=== PATIENT | female | born 1965 | race Caucasian/White ===

== ENCOUNTER 2016-08-11 13:23 | Emergency (ER) | payer MEDICARE ==
[2016-08-11] MEDS ORDERED: ASPIRIN CHEW 81 MG TABLET PO STA (13:51)
[2016-08-11] MEDS ORDERED: ASPIRIN CHEW 81 MG TABLET ONE (13:56)
[2016-08-11] MEDS ORDERED: NITROGLYCERIN SL 0.4 MG TABLET SL ONE (13:56)
[2016-08-11] MEDS ORDERED: MAG HYDROX/AL HYDROX/SIMETH 30 ML UDC PO STA ×3 (14:10→15:14)
[2016-08-11] MEDS ORDERED: LIDOCAINE VISCOUS 2% 15 ML UDC MM STA (14:10)
[2016-08-11] MEDS ORDERED: PHENobarb/HYOSCY/ATROPINE/SCOP 5 ML SYRINGE PO STA (14:10)
[2016-08-11] MEDS ORDERED: LIDOCAINE VISCOUS 2% 15 ML UDC MM ONE (14:22)
[2016-08-11] MEDS ORDERED: PHENobarb/HYOSCY/ATROPINE/SCOP 5 ML SYRINGE PO ONE (14:22)
[2016-08-11] MEDS ORDERED: MAG HYDROX/AL HYDROX/SIMETH 30 ML UDC ONE ×2 (14:22→15:27)
[2016-08-11] MEDS ORDERED: methylPREDNISolone SUCCINATE 125 MG/2 ML VIAL IVP STA ×2 (15:20→16:07)
[2016-08-11] MEDS ORDERED: methylPREDNISolone SUCCINATE 125 MG/2 ML VIAL IVP ONE (15:27)
[2016-08-11] MEDS ORDERED: METHYLPREDNISOLONE SUCCINATE IV STA ×2 (16:12→16:16)
[2016-08-11] MEDS ORDERED: SODIUM CHLORIDE 0.9% IV STA ×2 (16:12→16:16)
== END 2016-08-11 17:45 | disposition home or self-care (01) ==
DX: G35 Multiple sclerosis (principal); K21.9 Gastro-esophageal reflux disease without esophagitis; I10 Essential (primary) hypertension; I48.91 Unspecified atrial fibrillation; F17.200 Nicotine dependence, unspecified, uncomplicated
CPT/HCPCS: 36415; 71010; 80053; 81003; 83690; 84484; 85025; 85610; 93005; 93010; 96365; 96375; 99284; A9270

== ENCOUNTER 2016-09-21 09:16 | Outpatient (CLI) | payer MEDICARE ==
--- NOTE | 2016-09-21 14:51 | Ultrasound Report ---
THYROID ULTRASOUND: 09/21/2016 CLINICAL HISTORY: Bilateral neck swelling. TECHNIQUE: Real-time scanning was performed with food service sales representatives static images obtained. FINDINGS: Thyroid dimensions: Right lobe of the thyroid 4.5 cm by 1.2 cm by 1.4 cm for a volume of 3.9 cubic centimeters. Left lobe of the thyroid: 4.7 cm by 1.5 cm by 1.3 cm for a volume of 9.1 cubic centimeters. Thyroid isthmus has an AP diameter of 0.33 cm. The thyroid shows small oval-shaped mass in the inferior aspect of the left lobe of the thyroid that is slightly complex. It measures 0.54 cm by 0.35 cm by 0.45 cm. Findings at present are not suspicious enough to warrant biopsy. They should be followed with a repeat thyroid ultrasound in one to two years for further evaluation. A small oval-shaped benign solid mass is noted in the left posterior auricular region measuring 0.6 cm by 0.4 cm by 0.5 cm. This small mass is hyperechoic and well circumscribed. It has a benign appearance. It may represent a small lymph node. Suggest this finding undergo a repeat ultrasound in twelve months. The patient reported a lump in the area of the right jaw. This measured 1 cm by 0.4 cm. It had a configuration consistent with a benign lymph node. The lateral aspects of each neck in the supraclavicular regions were also scanned since patient reported a palpable prominence in this region. These areas had a benign configuration representing normal tissue. IMPRESSION: 1. A 0.54 CM BY 0.35 CM BY 0.45 CM NODULE IS NOTED IN THE INFERIOR ASPECT OF THE LEFT LOBE IN THE THYROID. THIS FINDING PRESENTLY HAS BENIGN CONFIGURATION. RECOMMEND A REPEAT THYROID ULTRASOUND IN TWELVE MONTHS FOR FURTHER EVALUATION. 2. A 0.6 CM BY 0.4 CM BY 0.5 CM WELL CIRCUMSCRIBED MILDLY HYPERECHOIC MASS IS SEEN IN THE LEFT POSTERIOR AURICULAR REGION. THIS FINDING MAY REPRESENT A SMALL BENIGN LYMPH NODE. RECOMMEND A REPEAT ULTRASOUND IN ONE YEAR FOR FURTHER EVALUATION. 3. OTHER AREAS OF CONCERN IN THE NECK WERE SCANNED AND SHOWED NO SIGNIFICANT ABNORMALITY. [facility]
== END 2016-09-21 09:17 | disposition home or self-care (01) ==
LOC: DI 09:16
PROVIDERS: ATTEND Family Medicine
DX: E04.1 Nontoxic single thyroid nodule (principal)
CPT/HCPCS: 76536

== ENCOUNTER 2016-12-07 13:56 | Outpatient (CLI) | payer MEDICARE ==
[2016-12-07 19:11] LABS: ALBUMIN/GLOBULIN RATIO 1.5 (1.0-2.2); BILIRUBIN,TOTAL 0.7 mg/dL (0.2-1.0); CALCIUM 9.3 mg/dL (8.5-10.3); CREATININE 0.6 mg/dL (0.4-1.0); POTASSIUM 4.3 mmol/L (3.5-5.0); TOTAL PROTEIN 6.9 g/dL (6.7-8.2)
== END 2016-12-07 13:57 | disposition home or self-care (01) ==
LOC: LAB.F 13:56
PROVIDERS: ATTEND Physician Assistant Medical
DX: Z51.81 Encounter for therapeutic drug level monitoring (principal); Z79.899 Other long term (current) drug therapy
CPT/HCPCS: 36415; 80053

== ENCOUNTER 2017-11-06 11:45 | Emergency (ER) | payer MEDICARE ==
[2017-11-06 11:55] VITALS: BP 136/98
[2017-11-06 12:31] LABS: ALBUMIN 4.6 g/dL (3.2-5.5); ALBUMIN/GLOBULIN RATIO 1.6 (1.0-2.2); BILIRUBIN,TOTAL 0.5 mg/dL (0.2-1.0); CALCIUM 9.3 mg/dL (8.5-10.3); CREATININE 0.8 mg/dL (0.4-1.0); TOTAL PROTEIN 7.5 g/dL (6.7-8.2)
[2017-11-06 12:38] LABS: INR 0.9 (0.8-1.2); PT - PROTHROMBIN TIME 9.8 secs (9.9-12.6)
[2017-11-06 12:51] LABS: BASOPHILS # (AUTO) 0.1 10^3/uL (0.0-0.1); BASOPHILS % (AUTO) 0.7 %; EOSINOPHILS % (AUTO) 0.3 %; HGB - HEMOGLOBIN 13.6 g/dL (12.0-16.0); LYMPHOCYTES % (AUTO) 12.4 %; MEAN CORPUSCULAR HEMOGLOBIN 34.3 pg (27.0-31.0); MEAN CORPUSCULAR HGB CONC 34.3 g/dL (32.0-36.0); MONOCYTES # (AUTO) 0.6 10^3/uL (0.0-1.0); MONOCYTES % (AUTO) 7.3 %; NEUTROPHILS # (AUTO) 6.5 10^3/uL (1.5-6.6); NEUTROPHILS % (AUTO) 79.3 %; PLT - PLATELET COUNT 302 10^3/uL (130-450); RED BLOOD COUNT 3.97 10^6/uL (4.20-5.40); RED CELL DISTRIBUTION WIDTH 13.6 % (12.0-15.0); WHITE BLOOD COUNT 8.2 x10^3/uL (4.8-10.8)
--- NOTE | 2017-11-06 13:20 | ED Physician Documentation ---
PD HPI NVD - Stated complaint Stated Complaint: N/V/D - Chief complaint Chief Complaint: Abd Pain - History obtained from History obtained from: Patient - History of Present Illness Timing - onset: How many days ago (4) Timing - duration: Days (4) Timing - details: Gradual onset, Still present (having increased pain upper abd with subjective cark stools. Having vomiting. Pain worse with eating. Bilious vomiting for the past 2 days. history of gastritis in the past. Sees Dr. 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: Endometrial ablation, Tubal ligation Cardiovascular: Other HEENT: Rhinoplasty, Tonsil/Adenoidectomy - Present Medications Home Medications: Ambulatory Orders Medication Instructions Recorded Confirmed Acyclovir 400 mg PO DAILY 04/15/13 04/16/17 Metoprolol Succinate [Toprol Xl] 25 mg PO TID 04/15/13 04/16/17 Tecfidera 240 mg ORAL BID 04/15/13 04/16/17 diazePAM [Valium] 5 mg PO BID 04/15/13 04/16/17 oxyCODONE ER [OxyCONTIN] 10 mg PO Q8HR PRN 04/15/13 04/16/17 Omeprazole 40 mg PO DAILY 12/24/14 04/16/17 Tizanidine HCl [Zanaflex] 2 mg PO TID 12/24/14 04/16/17 Venlafaxine [Effexor] 2 tab ORAL DAILY 12/24/14 04/16/17 Oxybutynin [Ditropan] 1 - 4 tab PO .FREQ 08/11/16 04/16/17 Sucralfate Malate, Polymerized 1 gm MM QID PRN #30 paste..ml. 08/11/16 04/16/17 [Orafate] HYDROcod/ACETAM 5/325 [[place] 5/325] 1 tab PO Q6H PRN #15 tablet 11/06/17 Lidocaine Viscous 2% [Xylocaine 5 ml PO Q4H PRN #1 bottle 11/06/17 Viscous 2%] Nystatin 500,000 unit PO QID #200 ml 11/06/17 Ondansetron HCl [Zofran] 4 mg PO Q6H PRN #20 tablet 11/06/17 Pantoprazole [Protonix] 40 mg PO DAILY #30 tablet 11/06/17 - Allergies Allergies/Adverse Reactions: Allergies Allergy/AdvReac Type Severity Reaction Status Date / Time amoxicillin [Amoxicillin] Allergy Rash Verified 11/06/17 11:55 ciprofloxacin [From Cipro] Allergy unknown Verified 11/06/17 11:55 ciprofloxacin HCl * Allergy unknown Verified 11/06/17 11:55 [From Cipro] meperidine HCl * AdvReac Severe Rash Verified 11/06/17 11:55 [From Demerol] - Social History Does the pt smoke?: Yes Smoking Status: Current every day smoker Does the pt drink ETOH?: No Does the pt have substance abuse?: No - Immunizations Immunizations are current?: No Immunizations: TDAP >10years/unknown PD ED PE NORMAL - Vitals Vital signs reviewed: Yes - General General: Alert and oriented X 3, Well developed/nourished, Other (appears uncomfortable due to upper abd pain) - HEENT HEENT: No: Pharynx benign (white plaque roof of mouth c/w thrush. Posterior pharynx appears okay. ) - Neck Neck: Supple, no meningeal sign, No adenopathy - Cardiac Cardiac: RRR, No murmur - Respiratory Respiratory: Clear bilaterally - Abdomen Abdomen: Normal bowel sounds, Soft, Non distended, No organomegaly, Other ( tender epigastric area without percussion nor rebound tenderness. ) - Female Female : Deferred - Rectal Rectal: Deferred - Back Back: No CVA TTP - Derm Derm: Normal color, Warm and dry - Extremities Extremities: No tenderness to palpate, Normal ROM s pain - Neuro Neuro: Alert and oriented X 3, No motor deficit, Normal speech Results - Vitals Vitals: Oxygen O2 Source Room air - Labs Labs: Laboratory Tests 11/06/17 11/06/17 11/06/17 12:00 12:11 12:11 WBC Cancelled RBC Cancelled Hgb Cancelled Hct Cancelled MCV Cancelled MCH Cancelled MCHC Cancelled RDW Cancelled Plt Count Cancelled MPV Cancelled Neut # (Auto) Lymph # (Auto) [place] # (Auto) Eos # (Auto) Baso # (Auto) Absolute Nucleated RBC Nucleated RBC % PT INR APTT Sodium Potassium Chloride Carbon Dioxide Anion Gap BUN Creatinine Estimated GFR (MDRD) Glucose Calcium Total Bilirubin AST ALT Alkaline Phosphatase Total Protein Albumin Globulin Albumin/Globulin Ratio Lipase Urine Color YELLOW Urine Clarity CLEAR Urine pH 6.5 Ur Specific [place] <=1.005 Urine Protein NEGATIVE Urine Glucose (UA) NEGATIVE Urine Ketones NEGATIVE Urine Occult Blood NEGATIVE Urine Nitrite NEGATIVE Urine Bilirubin NEGATIVE Urine Urobilinogen 0.2 (NORMAL) Ur Leukocyte Esterase NEGATIVE Ur Microscopic Review NOT INDICATED Urine Culture Comments NOT INDICATED Blood Type O POSITIVE Antibody Screen NEGATIVE 11/06/17 11/06/17 11/06/17 12:11 12:11 12:11 WBC 8.2 RBC 3.97 L Hgb 13.6 Hct 39.7 MCV 100.0 H MCH 34.3 H MCHC 34.3 RDW 13.6 Plt Count 302 MPV 8.0 Neut # (Auto) 6.5 Lymph # (Auto) 1.0 L [place] # (Auto) 0.6 Eos # (Auto) 0.0 Baso # (Auto) 0.1 Absolute Nucleated RBC 0.00 Nucleated RBC % 0.1 PT 9.8 L INR 0.9 APTT 25.8 Sodium 133 L Potassium 3.8 Chloride 96 L Carbon Dioxide 29 Anion Gap 8.0 BUN 10 Creatinine 0.8 Estimated GFR (MDRD) 75 L Glucose 113 H Calcium 9.3 Total Bilirubin 0.5 AST 21 ALT 18 Alkaline Phosphatase 93 Total Protein 7.5 Albumin 4.6 Globulin 2.9 Albumin/Globulin Ratio 1.6 Lipase 34 Urine Color Urine Clarity Urine pH Ur Specific [place] Urine Protein Urine Glucose (UA) Urine Ketones Urine Occult Blood Urine Nitrite Urine Bilirubin Urine Urobilinogen Ur Leukocyte Esterase Ur Microscopic Review Urine Culture Comments Blood Type Antibody Screen PD MEDICAL DECISION MAKING - ED course Complexity details: re-evaluated patient, considered differential (some oral thrush. COuld be esophageal thrush causing some pain. Does have prior esophageal problems though. I talked with GI fire prevention chief, and they will see her in next 1-2 days. ), d/w patient - Sepsis Event Vital Signs: Oxygen O2 Source Room air Departure - Departure Disposition: 01 Home, Self Care Clinical Impression: Upper abdominal pain, Oral thrush Gastritis Qualifiers: Gastritis type: unspecified gastritis Chronicity: acute Gastritis bleeding: with bleeding Qualified Code(s): K29.01 - Acute gastritis with bleeding Condition: Stable Record reviewed to determine appropriate education?: Yes Instructions: ED PUD Vs Gastritis Follow-Up: Jaclyn Moore PA-C [Primary Care Provider] - Rashad Segundo MD [Provider Admit Priv/Credential] - Prescriptions: HYDROcod/ACETAM 5/325 [[place] 5/325] 1 tab PO Q6H PRN #15 tablet PRN Reason: Pain Lidocaine Viscous 2% [Xylocaine Viscous 2%] 5 ml PO Q4H PRN #1 bottle PRN Reason: Pain Nystatin 500,000 unit PO QID #200 ml Ondansetron HCl [Zofran] 4 mg PO Q6H PRN #20 tablet PRN Reason: Nausea / Vomiting Pantoprazole [Protonix] 40 mg PO DAILY #30 tablet Comments: Frequent fluids. Soft and bland food for the next few days. Call your automotive service professional Wednesday for follow-up appointment in the next few days. Change from omeprazole to pantoprazole. Continue with the sucralfate 3 or 4 times daily. Add lidocaine if needed with antacid such as Maalox or Mylanta for stomach pains. Ondansetron if needed for nausea. Add hydrocodone if needed for pains. Return if worsening symptoms. Discharge Date/Time: 11/06/17 16:52
[2017-11-06 13:22] LABS: BILIRUBIN,URINE NEGATIVE (NEGATIVE); GLUCOSE, URINE (UA) NEGATIVE (NEGATIVE); KETONES,URINE (UA) NEGATIVE (NEGATIVE); LEUKOCYTE ESTERASE, URINE NEGATIVE (NEGATIVE); NITRITE,URINE NEGATIVE (NEGATIVE); OCCULT BLOOD,URINE NEGATIVE (NEGATIVE); PH,URINE 6.5 PH (5.0-7.5); PROTEIN,URINE NEGATIVE (NEGATIVE); UROBILINOGEN,URINE 0.2 (NORMAL) E.U./dL (NORMAL)
[2017-11-06 13:24] LABS: CLARITY,URINE CLEAR (CLEAR)
[2017-11-06] MEDS ORDERED: SODIUM CHLORIDE 0.9% 1,000 ML IV ONE (13:45)
[2017-11-06] MEDS ORDERED: LIDOCAINE VISCOUS 2% 15 ML UDC MM STA (13:46)
[2017-11-06] MEDS ORDERED: MAG HYDROX/AL HYDROX/SIMETH 30 ML UDC PO STA (13:46)
[2017-11-06] MEDS ORDERED: MORPHINE 10 MG/ML VIAL IVP STA (13:46)
[2017-11-06] MEDS ORDERED: FAMOTIDINE 20 MG/50 ML 50 ML IV ONE (13:46)
[2017-11-06] MEDS ORDERED: ONDANSETRON 4 MG/2 ML VIAL IVP STA (13:46)
[2017-11-06] MEDS ORDERED: NYSTATIN 500000 UNITS/5 ML UDC PO STA (14:46)
[2017-11-06] MEDS ORDERED: diphenhydrAMINE ELIXIR 25 MG/10 ML UDC PO STA (14:46)
== END 2017-11-06 16:52 | disposition home or self-care (01) ==
LOC: ED 11:45
DX: R10.10 Upper abdominal pain, unspecified (principal); B37.0 Candidal stomatitis; K29.01 Acute gastritis with bleeding; I10 Essential (primary) hypertension; F17.200 Nicotine dependence, unspecified, uncomplicated
CPT/HCPCS: 36415; 80053; 81003; 83690; 85025; 85610; 85730; 86850; 86900; 86901; 96365; 96375; 99283; A9270; 81001; 85027; 87086

== ENCOUNTER 2018-12-19 12:37 | Emergency (ER) | payer MEDICARE ==
--- NOTE | 2018-12-19 13:09 | ED Physician Documentation ---
History of Present Illness - Stated complaint Stated Complaint: HIGH BP, DIZZY, - Chief complaint Chief Complaint: Cardiac - Additonal information Additional information: This is a 53-year-old female with a history of multiple sclerosis, repaired ASD, atrial fibrillation not on anticoagulation, who presents with multiple complaints. She states that she has had a severe headache for 2 weeks, and she will intermittently have some slightly blurred vision as well. She has achiness in her muscles, she will intimately get some palpitations. She has noted her blood pressure to be high at home. She also for the last month has been getting some intermittent bruising which are some deep purple sheikh that are the size of pencil eraser's nail shop on her arms and legs, without clear trauma. She denies any easy bleeding, or known coagulopathy. She is not on blood thinners. Review of Systems Constitutional: denies: Fever Eyes: reports: Other (intermittent vision change) Throat: denies: Sore throat Cardiac: reports: Other (Hx a-fib) Respiratory: denies: Hemoptysis GI: reports: Nausea Skin: reports: Other (bruising) Neurologic: reports: Generalized weakness Psychiatric: reports: Anxiety Endocrine: reports: Easy bruising / bleeding Immunocompromised: denies: Immunocompromised PD PAST MEDICAL HISTORY - Past Medical History Past Medical History: No Cardiovascular: Hypertension, Atrial fibrillation, Arrhythmia, Other Respiratory: None Neuro: None Endocrine/Autoimmune: None GI: GERD 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 : Incontinence HEENT: Chronic hearing loss, Other Psych: Depression, Anxiety Musculoskeletal: Fatigue, Chronic back pain Derm: Other - Past Surgical History Past Surgical History: Yes General: Colonoscopy, 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: Endometrial ablation, Tubal ligation Cardiovascular: Other HEENT: Rhinoplasty, Tonsil/Adenoidectomy - Present Medications Home Medications: Ambulatory Orders Medication Instructions Recorded Confirmed Acyclovir 400 mg PO DAILY 04/15/13 04/16/17 Metoprolol Succinate [Toprol Xl] 25 mg PO TID 04/15/13 04/16/17 Tecfidera 240 mg ORAL BID 04/15/13 04/16/17 diazePAM [Valium] 5 mg PO BID 04/15/13 04/16/17 oxyCODONE ER [OxyCONTIN] 10 mg PO Q8HR PRN 04/15/13 04/16/17 Omeprazole 40 mg PO DAILY 12/24/14 04/16/17 Tizanidine HCl [Zanaflex] 2 mg PO TID 12/24/14 04/16/17 Venlafaxine [Effexor] 2 tab ORAL DAILY 12/24/14 04/16/17 Oxybutynin [Ditropan] 1 - 4 tab PO .FREQ 08/11/16 04/16/17 Sucralfate Malate, Polymerized 1 gm MM QID PRN #30 paste..ml. 08/11/16 04/16/17 [Orafate] HYDROcod/ACETAM 5/325 [[place] 5/325] 1 tab PO Q6H PRN #15 tablet 11/06/17 Lidocaine Viscous 2% [Xylocaine 5 ml PO Q4H PRN #1 bottle 11/06/17 Viscous 2%] Nystatin 500,000 unit PO QID #200 ml 11/06/17 Ondansetron HCl [Zofran] 4 mg PO Q6H PRN #20 tablet 11/06/17 Pantoprazole [Protonix] 40 mg PO DAILY #30 tablet 11/06/17 - Allergies Allergies/Adverse Reactions: Allergies Allergy/AdvReac Type Severity Reaction Status Date / Time amoxicillin [Amoxicillin] Allergy Rash Verified 12/19/18 12:50 ciprofloxacin [From Cipro] Allergy unknown Verified 12/19/18 12:50 ciprofloxacin HCl * Allergy unknown Verified 12/19/18 12:50 [From Cipro] meperidine HCl * AdvReac Severe Rash Verified 12/19/18 12:50 [From Demerol] - Social History Does the pt smoke?: Yes Smoking Status: Current every day smoker Does the pt drink ETOH?: Yes Does the pt have substance abuse?: Yes Substance Use and Type: Marijuana - Immunizations Immunizations are current?: No Immunizations: TDAP >10years/unknown - POLST Patient has POLST: No PD ED PE NORMAL - Vitals Vital signs reviewed: Yes - General General: Alert and oriented X 3, No acute distress - HEENT HEENT: PERRL - Neck Neck: Supple, no meningeal sign - Cardiac Cardiac: RRR, No murmur - Respiratory Respiratory: Clear bilaterally - Abdomen Abdomen: Soft, Non tender, Non distended - Derm Derm: Warm and dry, Other (Several scattered, normal appearing small bruises in different stages of resoltuion on the lower and upper extremities.) - Extremities Extremities: No deformity - Neuro Neuro: Alert and oriented X 3, senior backup administrator 2-12 intact, No motor deficit, No sensory deficit, Normal speech - Psych Psych: Normal mood, Other (Anxious affect) Results - Vitals Vitals: Oxygen O2 Source Room air - EKG (time done) 12:58 Other comments: Other comments (Rate 73, rhythm sinus, there is slight less than [address] depression in V4 and V5. There are T wave inversions in V1 V2 and V3. QTC is 422) - Labs Labs: Laboratory Tests 12/19/18 12/19/18 12/19/18 13:25 13:25 13:25 WBC 6.2 RBC 4.65 Hgb 15.0 Hct 43.8 MCV 94.2 MCH 32.3 H MCHC 34.2 RDW 12.9 Plt Count 342 MPV 9.6 Neut # (Auto) 3.7 Lymph # (Auto) 1.5 [place] # (Auto) 0.8 Eos # (Auto) 0.1 Baso # (Auto) 0.1 Absolute Nucleated RBC 0.00 Nucleated RBC % 0.0 PT INR Sodium 141 Potassium 4.1 Chloride 104 Carbon Dioxide 24 Anion Gap 13.0 BUN 21 H Creatinine 0.6 Estimated GFR (MDRD) 104 Glucose 110 H Calcium 9.9 Total Bilirubin 0.5 AST 23 ALT 23 Alkaline Phosphatase 87 Troponin I High Sens 3.5 Total Protein 8.0 Albumin 4.6 Globulin 3.4 Albumin/Globulin Ratio 1.4 Lipase 31 Serum HCG, Qual 12/19/18 12/19/18 13:25 13:25 WBC RBC Hgb Hct MCV MCH MCHC RDW Plt Count MPV Neut # (Auto) Lymph # (Auto) [place] # (Auto) Eos # (Auto) Baso # (Auto) Absolute Nucleated RBC Nucleated RBC % PT 10.9 INR 1.0 Sodium Potassium Chloride Carbon Dioxide Anion Gap BUN Creatinine Estimated GFR (MDRD) Glucose Calcium Total Bilirubin AST ALT Alkaline Phosphatase Troponin I High Sens Total Protein Albumin Globulin Albumin/Globulin Ratio Lipase Serum HCG, Qual NEGATIVE - Rads (name of study) CT head Radiology: Final report received (No acute intracranial abnormality) Chest XR Radiology: Final report received (Negative for acute abnormality) PD MEDICAL DECISION MAKING - ED course Complexity details: considered differential (HTN, electrolyte abnormality, migraine, tension headache, ACS, coagulaopathy, thrombocytopenia, anemia, pnuemonia ) ED course: On exam patient is hypertensive. EKG shows slight lateral ST depression of uncertain chronicity. She has no chest pain or shortness of breath. Her symptoms have been ongoing for > 6 hours and her high-sensitivity troponin is negative, I highly doubt acute ischemia. She should follow with her PCP or a resident advisor on her EKG changes. CXR unremarkable. Labs unrevealing. Regarding her bruising, she has several small areas of ecchymosis on her extremities that do not appear abnormal to me. INR and platelets are normal. CT head negative and her neurologic exam is unremarkable. Her BP removed spontaneously, as did patients headache and symptoms. I discussed that I do not see an emergent cause of her symptoms, and given that she is now feeling improved she appears safe for discharge. She needs to follow very closely with her PCP, and return with any new or worsening symptoms. Patient agreed and was discharged in the care of her . Departure - Departure Disposition: 01 Home, Self Care Clinical Impression: Headache Qualifiers: Headache type: unspecified Headache chronicity pattern: acute headache Intractability: not intractable Qualified Code(s): R51 - Headache Condition: Good Instructions: ED Cephalgia Unspecified Follow-Up: Your,PCP [Other] (As soon as possible for follow up on symptoms) Comments: You were seen today for a variety of symptoms, including headache and bruising. I do not see signs of abnormal clotting with your blood, and the CT scan of your head does not show any obvious abnormalities. Your chest x-ray also looked good, and your labs are reassuring. Please follow-up closely with your primary care provider return to the emergency department if you develop new or worsening symptoms Discharge Date/Time: 12/19/18 15:32
[2018-12-19 13:36] LABS: BASOPHILS # (AUTO) 0.1 10^3/uL (0.0-0.1); BASOPHILS % (AUTO) 1.4 %; EOSINOPHILS # (AUTO) 0.1 10^3/uL (0.0-0.7); EOSINOPHILS % (AUTO) 2.1 %; LYMPHOCYTES # (AUTO) 1.5 10^3/uL (1.5-3.5); MEAN CORPUSCULAR HEMOGLOBIN 32.3 pg (27.0-31.0); MEAN CORPUSCULAR HGB CONC 34.2 g/dL (32.0-36.0); MEAN CORPUSCULAR VOLUME 94.2 fL (81.0-99.0); MEAN PLATELET VOLUME 9.6 fL (7.9-10.8); MONOCYTES # (AUTO) 0.8 10^3/uL (0.0-1.0); MONOCYTES % (AUTO) 12.1 %; NEUTROPHILS # (AUTO) 3.7 10^3/uL (1.5-6.6); NEUTROPHILS % (AUTO) 59.9 %; PLT - PLATELET COUNT 342 10^3/uL (130-450); RED BLOOD COUNT 4.65 10^6/uL (4.20-5.40); RED CELL DISTRIBUTION WIDTH 12.9 % (12.0-15.0); WHITE BLOOD COUNT 6.2 x10^3/uL (4.8-10.8)
[2018-12-19 13:56] LABS: HCG,QUALITATIVE BLOOD NEGATIVE; PT - PROTHROMBIN TIME 10.9 secs (9.9-12.6)
[2018-12-19 14:06] LABS: ALBUMIN 4.6 g/dL (3.2-5.5); ALBUMIN/GLOBULIN RATIO 1.4 (1.0-2.2); BILIRUBIN,TOTAL 0.5 mg/dL (0.2-1.0); CREATININE 0.6 mg/dL (0.4-1.0)
--- NOTE | 2018-12-19 14:17 | CT Report ---
Reason: severe headache Procedure Date: 12/19/2018 Accession Number: [id number] / [id number] Procedure: CT - HEAD WO CPT Code: FULL RESULT: EXAM: CT HEAD EXAM DATE: 12/19/2018 02:02 PM. CLINICAL HISTORY: Severe headache. COMPARISON: None. TECHNIQUE: Multiaxial CT images were obtained from the foramen magnum to the vertex. Reformats: Sagittal and coronal. IV contrast: None. In accordance with CT protocol optimization, one or more of the following dose reduction techniques were utilized for this exam: automated exposure control, adjustment of mA and/or KV based on patient size, or use of iterative reconstructive technique. FINDINGS: Parenchyma: No intraparenchymal hemorrhage. No evidence of mass, midline shift, or CT findings of infarction. Chavez-white differentiation is distinct. Extraaxial Spaces: Normal for age. No subdural or epidural collections identified. Ventricles: Normal in size and position. Sinuses and Orbits: Imaged paranasal sinuses, orbits, and mastoids show no significant abnormality. Bones: No evidence of fracture or calvarial defect. Other: None. IMPRESSION: No CT evidence of acute intracranial abnormality. [facility]
--- NOTE | 2018-12-19 14:20 | XRAY Report ---
Reason: Chest discomfort Procedure Date: 12/19/2018 Accession Number: [id number] / [id number] Procedure: XR - Chest 2 View X-Ray CPT Code: 52920 FULL RESULT: EXAM: CHEST RADIOGRAPHY EXAM DATE: 12/19/2018 01:46 PM. CLINICAL HISTORY: Chest discomfort. COMPARISON: CHEST 1 VIEW 08/11/2016 2:17 PM. TECHNIQUE: 2 views. FINDINGS: Lungs/Pleura: No focal opacities evident. No pleural effusion. No pneumothorax. Normal volumes. Mediastinum: Heart and mediastinal contours are unremarkable. Other: None. IMPRESSION: No acute intrathoracic plain film abnormality. [facility]
[2018-12-19 14:23] LABS: CALCIUM 9.9 mg/dL (8.5-10.3)
[2018-12-19 15:36] VITALS: BP 131/66
== END 2018-12-19 15:32 | disposition home or self-care (01) ==
LOC: ED 12:37
DX: R51 Headache (principal); R23.3 Spontaneous ecchymoses; R94.31 Abnormal electrocardiogram [ECG] [EKG]; I10 Essential (primary) hypertension; G35 Multiple sclerosis; Z86.79 Personal history of other diseases of the circulatory system; F17.200 Nicotine dependence, unspecified, uncomplicated
CPT/HCPCS: 36415; 70450; 71046; 80053; 83690; 84484; 84703; 85025; 85610; 93005; 99284

== ENCOUNTER 2019-12-04 23:36 | Emergency (ER) | payer MEDICARE ==
[2019-12-04 23:43] VITALS: BP 145/91
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
[2019-12-04] MEDS ORDERED: TETANUS/DIPHTHERIA/PERTUSSIS 0.5 ML SYRINGE IM ONE (23:53)
[2019-12-05] MEDS ORDERED: BUFFERED LIDOCAINE 10 ML SYRINGE SUBQ STA (00:06)
[2019-12-05] MEDS ORDERED: BACITRACIN ZINC OINT 1 PACKET TOP STA (01:26)
--- NOTE | 2019-12-05 08:55 | XRAY Report ---
PROCEDURE: Forearm RT INDICATIONS: FA laceration, possible FB TECHNIQUE: 2 views of the forearm were acquired. COMPARISON: None FINDINGS: Bones: No fractures or dislocations. No suspicious bony lesions. Soft tissues: Laceration over left and ulnar aspect of right forearm is seen. No suspicious soft tis noelle calcifications or masses. IMPRESSION: No acute forearm fracture or dislocation. No radiopaque foreign body is seen. Reviewed by: Lalo Warner MD on 12/05/2019 8:53 AM PDT Approved by: Lalo Warner MD on 12/05/2019 8:53 AM PDT Station ID: [id number]
== END 2019-12-05 01:45 | disposition home or self-care (01) ==
LOC: EDUNIT# → ED 23:36
DX: S51.811A Laceration without foreign body of right forearm, initial encounter (principal); S60.511A Abrasion of right hand, initial encounter; X99.9XXA Assault by unspecified sharp object, initial encounter; Y92.009 Unspecified place in unspecified non-institutional (private) residence as the place of occurrence of the external cause; Z23 Encounter for immunization; R45.1 Restlessness and agitation; I10 Essential (primary) hypertension; F17.200 Nicotine dependence, unspecified, uncomplicated
CPT/HCPCS: 12001; 73090; 90471; 90715; 99283; 99284; A9270

== ENCOUNTER 2019-12-20 13:51 | Outpatient (CLI) | payer MEDICARE | END 2019-12-20 13:52 | disposition home or self-care (01) | LOC: LAB 13:51 | PROVIDERS: ATTEND Orthopaedic Surgery | DX: I48.0 Paroxysmal atrial fibrillation (principal); R00.2 Palpitations; Z20.828 Contact with and (suspected) exposure to other viral communicable diseases | CPT/HCPCS: 93005; U0004 ==

== ENCOUNTER 2019-12-26 13:36 | Inpatient (IN) | payer MEDICARE ==
--- NOTE | 2019-12-26 14:34 | ED Physician Documentation ---
History of Present Illness - Stated complaint Stated Complaint: NUMBNESS RT SIDE - Chief complaint Chief Complaint: Neuro - History obtained from History obtained from: Patient - History of Present Illness Timing: Prior to arrival, How many days ago (5) - Additonal information Additional information: 54-year-old female presents to the emergency department for evaluation of numbness predominantly in her right leg right abdomen and perianal area. She reports to me a history of multiple sclerosis. She reports that 5 days ago she began having numbness on the top of her right thigh that then spread to the right side of her abdomen, the saddle area as well as now the entire right leg. She denies that she has had any bowel or urinary incontinence. She denies any fevers urinary symptoms. She states that due to a variety of issues including cost of medication she has not been taking any of her routine MS medications for nearly 18 months or 2 years. She states that about 2 weeks ago she began having vision changes in her right eye and she saw a neurologist. He suspected that she had optic neuritis and placed her on steroid drops. She endorses heart palpitations but no chest pain or dyspnea. She has had no cough no fever no urinary symptoms. No falls, no rashes. No recent travel. 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 : Incontinence HEENT: Chronic hearing loss, Other Psych: Depression, Anxiety Musculoskeletal: Fatigue, Chronic back pain Derm: Other - Past Surgical History Past Surgical History: Yes General: Colonoscopy, EGD /RECREATION SUPERVISOR: Endometrial ablation, Tubal ligation Cardiovascular: Other HEENT: Rhinoplasty, Tonsil/Adenoidectomy - Present Medications Home Medications: Ambulatory Orders Medication Instructions Recorded Confirmed Acyclovir 400 mg PO DAILY 04/15/13 04/16/17 Metoprolol Succinate [Toprol Xl] 25 mg PO TID 04/15/13 04/16/17 Tecfidera 240 mg ORAL BID 04/15/13 04/16/17 diazePAM [Valium] 5 mg PO BID 04/15/13 04/16/17 oxyCODONE ER [OxyCONTIN] 10 mg PO Q8HR PRN 04/15/13 04/16/17 Omeprazole 40 mg PO DAILY 12/24/14 04/16/17 Tizanidine HCl [Zanaflex] 2 mg PO TID 12/24/14 04/16/17 Venlafaxine [Effexor] 2 tab ORAL DAILY 12/24/14 04/16/17 Oxybutynin [Ditropan] 1 - 4 tab PO .FREQ 08/11/16 04/16/17 Sucralfate Malate, Polymerized 1 gm MM QID PRN #30 paste..ml. 08/11/16 04/16/17 [Orafate] HYDROcod/ACETAM 5/325 [[place] 5/325] 1 tab PO Q6H PRN #15 tablet 11/06/17 Lidocaine Viscous 2% [Xylocaine 5 ml PO Q4H PRN #1 bottle 11/06/17 Viscous 2%] Nystatin 500,000 unit PO QID #200 ml 11/06/17 Ondansetron HCl [Zofran] 4 mg PO Q6H PRN #20 tablet 11/06/17 Pantoprazole [Protonix] 40 mg PO DAILY #30 tablet 11/06/17 - Allergies Allergies/Adverse Reactions: Allergies Allergy/AdvReac Type Severity Reaction Status Date / Time amoxicillin [Amoxicillin] Allergy Rash Verified 12/26/19 13:52 ciprofloxacin [From Cipro] Allergy unknown Verified 12/26/19 13:52 ciprofloxacin HCl * Allergy unknown Verified 12/26/19 13:52 [From Cipro] meperidine HCl * AdvReac Severe Rash Verified 12/26/19 13:52 [From Demerol] - Social History Does the pt smoke?: Yes Smoking Status: Current every day smoker Does the pt drink ETOH?: Yes Does the pt have substance abuse?: Yes - Immunizations Immunizations are current?: No Immunizations: TDAP >10years/unknown - POLST Patient has POLST: No PD ED PE EXPANDED - General General: Alert, No acute distress, Well developed/nourished, Disheveled, poorly kept - HEENT HEENT: Atraumatic, PERRL. No: Gaze palsy - Eyes Eyes: PERRL, Normal accommodation - Neck Neck: Supple w/out meningeal sx, No tenderness. No: Adenopathy, Thyroid enlarged / mass - Cardiac Cardiac: Regular Rate, Regular Rhythm, Radial strong equal, Femoral strong equal, Pedal strong equal, Cap refill < 2 sec. No: Murmur Present - Respiratory Respiratory: Clear to ausultation laureano. No: Distress, Labored - Abdomen Abdomen: Normal Bowel sounds. No: Tender to palpation - Back Back: Normal exam. No: Soft tissue tenderness, CVA TTP right, CVA TTP left - Derm Derm: Warm and dry. No: Rash - Extremities Extremities: Normal, Other (Subjective numbness and paresthesia of the right leg from the great toe to the right iliac crest. No rash or lesion. Full motor strength and patellar reflexes preserved on bilateral lower extremities.). No: Deformity, Tenderness - Neuro Neuro: Alert and Oriented X 3, Normal reflexes (2+ patellar right and left leg), Abnormal sensation (patchy partesias/numbness right thigh, righ tabdomen, saddle/perineum, right leg), CNII-XII intact, Cerebellar nl, Normal gait, Normal finger nose, Normal speech. No: Normal Sensation - GCS Eye Opening: Spontaneous Motor: Obeys Commands Verbal: Oriented Total: 15 Results - Vitals Vitals: Vital Signs - 24 hr 12/26/19 12/26/19 12/26/19 13:45 14:32 15:18 Temperature 36.9 C Heart Rate 70 61 58 L Respiratory 18 12 15 Rate Blood Pressure 146/87 H 141/99 H 124/81 H O2 Saturation 100 99 97 Oxygen O2 Source Room air - EKG (time done) 1401 Rate: Rate (enter#) (62) Rhythm: NSR [place]: Normal Intervals: Normal CO QRS: Normal Ischemia: Non specific changes Compare to prior EKG: Unchanged from prior EKG Computer interpretation: Agree with computer - Labs Labs: Laboratory Tests 12/26/19 12/26/19 12/26/19 14:40 14:40 14:40 WBC 6.8 RBC 4.85 Hgb 15.6 Hct 43.9 MCV 90.5 MCH 32.2 H MCHC 35.5 RDW 12.1 Plt Count 337 MPV 10.2 Neut # (Auto) 3.7 Lymph # (Auto) 2.1 [place] # (Auto) 0.7 Eos # (Auto) 0.2 Baso # (Auto) 0.1 Absolute Nucleated RBC 0.00 Nucleated RBC % 0.0 Sodium 136 Potassium 3.2 L Chloride 99 L Carbon Dioxide 25 Anion Gap 12.0 BUN 23 H Creatinine 0.8 Estimated GFR (MDRD) 74 L Glucose 109 H Calcium 9.8 Total Bilirubin 0.8 AST 16 ALT 17 Alkaline Phosphatase 80 Troponin I High Sens 4.3 Total Protein 7.4 Albumin 4.5 Globulin 2.9 Albumin/Globulin Ratio 1.6 Lipase 38 Urine Color Urine Clarity Urine pH Ur Specific [place] Urine Protein Urine Glucose (UA) Urine Ketones Urine Occult Blood Urine Nitrite Urine Bilirubin Urine Urobilinogen Ur Leukocyte Esterase Ur Microscopic Review Urine Culture Comments Urine HCG, Qual 12/26/19 14:49 WBC RBC Hgb Hct MCV MCH MCHC RDW Plt Count MPV Neut # (Auto) Lymph # (Auto) [place] # (Auto) Eos # (Auto) Baso # (Auto) Absolute Nucleated RBC Nucleated RBC % Sodium Potassium Chloride Carbon Dioxide Anion Gap BUN Creatinine Estimated GFR (MDRD) Glucose Calcium Total Bilirubin AST ALT Alkaline Phosphatase Troponin I High Sens Total Protein Albumin Globulin Albumin/Globulin Ratio Lipase Urine Color YELLOW Urine Clarity CLEAR Urine pH 5.5 Ur Specific [place] 1.015 Urine Protein NEGATIVE Urine Glucose (UA) NEGATIVE Urine Ketones NEGATIVE Urine Occult Blood NEGATIVE Urine Nitrite NEGATIVE Urine Bilirubin NEGATIVE Urine Urobilinogen 0.2 (NORMAL) Ur Leukocyte Esterase NEGATIVE Ur Microscopic Review NOT INDICATED Urine Culture Comments NOT INDICATED Urine HCG, Qual NEGATIVE PD MEDICAL DECISION MAKING - ED course Complexity details: reviewed results, considered differential, d/w patient, d/w relationship consultant (Dr. Joiner ([facility])) ED course: 54-year-old female presents to the emergency department for evaluation of patchy right leg, right lower quadrant, saddle area numbness and tingling that began about 5 days ago. This pleasant lady does have a history of multiple sclerosis but due to cost of medication she has not taken any of her medications namely Tecfidera for nearly 18 months or longer. - patchy parathesias on the right leg most likely consistent with an MS flare. Unfortuantely unmedicated for > 18 months. Urine shows no sign sof infection. Chest xray negative for focal infiltrates - I have spoken on the phone with [facility] Dr. Geronimo. She has reviewed her chart. Given the recent vision changes as well as now paresthesias in the right leg she would recommend that she come into the hospital for management of an acute multiple sclerosis flare. She would recommend 1 g of IV methylprednisolone daily as well as MRI imaging of the brain cervical and thoracic spines with contrast. She does state if the patient is feeling better after 3 days with reduced paresthesias she may be considered for discharge home at that time with close follow-up with [facility] as an outpatient. - I have spoken with Dr. Elizabeth Thomas on the phone admitting hospitalist who has agreed to see and admit patient Departure - Departure Disposition: 66 [facility] DC/[facility] Clinical Impression: Multiple sclerosis
--- NOTE | 2019-12-26 14:47 | XRAY Report ---
PROCEDURE: Chest 1 View X-Ray INDICATIONS: Chest Pain TECHNIQUE: One view of the chest was acquired. COMPARISON: Chest x-ray, 12/19/2018. FINDINGS: Surgical changes and devices: None. Lungs and pleura: Mild hyperinflation consistent minutes COPD. No pleural effusions or pneumothorax. Lungs are clear. Mediastinum: Mediastinal contours appear normal. Heart size is normal. Bones and chest wall: No suspicious bony lesions. Overlying soft tissues appear unremarkable. Old right eighth rib fracture. IMPRESSION: 1. No acute cardiopulmonary disease. 2. COPD. 3. Old right eighth rib fracture. Reviewed by: Ana Pitts MD on 12/26/2019 2:46 PM PDT Approved by: Ana Pitts MD on 12/26/2019 2:46 PM PDT Station ID: [id number]
[2019-12-26 14:52] LABS: BASOPHILS # (AUTO) 0.1 10^3/uL (0.0-0.1); BASOPHILS % (AUTO) 1.5 %; EOSINOPHILS # (AUTO) 0.2 10^3/uL (0.0-0.7); EOSINOPHILS % (AUTO) 2.9 %; HGB - HEMOGLOBIN 15.6 g/dL (12.0-16.0); LYMPHOCYTES # (AUTO) 2.1 10^3/uL (1.5-3.5); LYMPHOCYTES % (AUTO) 31.3 %; MEAN CORPUSCULAR HEMOGLOBIN 32.2 pg (27.0-31.0); MEAN CORPUSCULAR HGB CONC 35.5 g/dL (32.0-36.0); MEAN CORPUSCULAR VOLUME 90.5 fL (81.0-99.0); MEAN PLATELET VOLUME 10.2 fL (7.9-10.8); MONOCYTES # (AUTO) 0.7 10^3/uL (0.0-1.0); MONOCYTES % (AUTO) 10.7 %; NEUTROPHILS # (AUTO) 3.7 10^3/uL (1.5-6.6); NEUTROPHILS % (AUTO) 53.3 %; PLT - PLATELET COUNT 337 10^3/uL (130-450); RED BLOOD COUNT 4.85 10^6/uL (4.20-5.40); RED CELL DISTRIBUTION WIDTH 12.1 % (12.0-15.0); WHITE BLOOD COUNT 6.8 x10^3/uL (4.8-10.8)
[2019-12-26 14:58] LABS: BILIRUBIN,URINE NEGATIVE (NEGATIVE); GLUCOSE, URINE (UA) NEGATIVE (NEGATIVE); KETONES,URINE (UA) NEGATIVE (NEGATIVE); LEUKOCYTE ESTERASE, URINE NEGATIVE (NEGATIVE); NITRITE,URINE NEGATIVE (NEGATIVE); OCCULT BLOOD,URINE NEGATIVE (NEGATIVE); PH,URINE 5.5 PH (5.0-7.5); PROTEIN,URINE NEGATIVE (NEGATIVE); UROBILINOGEN,URINE 0.2 (NORMAL) E.U./dL (NORMAL)
[2019-12-26 14:59] LABS: CLARITY,URINE CLEAR (CLEAR)
[2019-12-26 15:00] LABS: HCG UR QUAL NEGATIVE
[2019-12-26 15:06] LABS: ALBUMIN 4.5 g/dL (3.2-5.5); ALBUMIN/GLOBULIN RATIO 1.6 (1.0-2.2); BILIRUBIN,TOTAL 0.8 mg/dL (0.2-1.0); CALCIUM 9.8 mg/dL (8.5-10.3); CREATININE 0.8 mg/dL (0.4-1.0); TOTAL PROTEIN 7.4 g/dL (6.7-8.2)
[2019-12-26] MEDS ORDERED: methylPREDNISolone SUCCINATE 1,000 MG in SODIUM CHLORIDE 0.9% 250 ML IV STA (15:17)
[2019-12-26] MEDS ORDERED: SODIUM CHLORIDE FLUSH 0.9% 10 ML SYRINGE IVP PRN (15:37)
--- NOTE | 2019-12-26 15:52 | HISTORY & PHYSICAL EXAMINATION ---
Chief Complaint - Chief Complaint Chief Complaint: the pain / stabbing pain just got so bad, couldnt stand it History of Present Illness - Admitted From Admitted From:: ED from home - History Obtained From Records Reviewed: from ED visits, and current at History obtained from: Ed provider and patient Exam Limitations: history limitations; patient frustrated by history questions - History of Present Illness HPI Comment/Other: Patient during interview frequently frustrated , somewhat confrontational and evasive with answers, comments to the effect of "I cant do this any more", "always answering the same questions, I've gone thru 5 PCP's, They keep leaving". Doesnt currently have a PCP . "thats the thing, I dont even know who my PCP is." 54 year old female with known MS (Dr Stanton/neurology) since 2005 who is cu rrently on no immunomodulatory tx (reports none of them worked, first Capoxone, Rebif, last agent Tekfidera subjectively with improvement but she discontinued it ~ 2 yrs ago due to cost and reported insurance not covering.) She also has not been taking most previously Rx'd meds for MS symptoms (e.g ditropan) managing pain with "600 mg bid ibuprofen daily for months" presents to the ED with complaints of paresthesias, numbness and sharp stabbing pains. This is primarily in the Right leg, perineum, Right groin, Right abominal paresthesia/numbness. She notes she was in her usual health until ~ 5 days ago other than seeing local ophtmalogist ~ 1 week ago for "floaters and phtophobia".Denies diplopia, reports a visual effect like blinds closing on R, no field deficit Ophthamologist discussed w/ Dr. 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 Barrera (neuroophthamology) did suggest the optic neuritis could be MS flare. He rx'd prednisone drops. She does not recall dosing. Continues w/ visual symptoms and photophobia She denies incontinence, but later acknowledges occasional dribbling. negative dysuria. hasnt been taking the oxybutynin + constipation "maybe". Denies signigicant motor deficits, denies falls (other than one that was alcohol related 12/03,she denies heavy ETOH use and notes it was due to stress w/ issues with her mother), " I can do all my ADL's" Denies "furniture walking" . Denies cognitive issues w/ MS but during interview frequently says I dont know I cant think right now. She reports stabbing pain " all over her body" . She was prescribed gabapentin 300 am, 300 noon and 600 pm for the paresthesias and neuropathic pain after she had a RUE hand injury due to fall on glass. There is no associated fever, chills, No leukocytosis on labs ( WBC 6.8, H/H normal . Chemistries normal other than mild hypokaleia 3.2. No known mal ignancy. UA unremarkable in ED Her initial presentation in 2005 ws due to fatigue and parestehsias. She denies any ocular problems at the time of diagnosis. In the ED , MD spoke with Dr Joiner (? Juanpablo) from [facility] who reviewed patients prior records. He felt this was most c/w MS exacerbation and recommended inpatient solumedrol 3-5 days 1 gram and evaluate response History - Past Medical History Cardiovascular: reports: Hypertension, Atrial fibrillation (patient unsure if afib or "just fast heart rate" on metoprolol, no anticoagulation, "i've been told I should be on asa"), Arrhythmia, Other Respiratory: reports: None Neuro: reports: Migraines, Multiple sclerosis (not responsive to immunomodulating thereapy per patient "kept relapsing") Endocrine/Autoimmune: reports: None GI: reports: GERD (was on pantoprazole, now takes OTC prilosec) LARDER COOK: reports: None : reports: Incontinence, Other (hasnt taken oxybutynin in ~ 2 yrs) HEENT: reports: Chronic hearing loss Psych: reports: Depression, Anxiety Musculoskeletal: reports: Fatigue, Chronic back pain, Other Derm: reports: Other MRSA Hx?: No - Past Surgical History General: reports: Colonoscopy, EGD /LARDER COOK: reports: Endometrial ablation, Tubal ligation Cardiovascular: reports: Other HEENT: reports: Rhinoplasty, Tonsil/Adenoidectomy - Family & Social History Family History: Mother: Hypertension (aortic aneuysm, still alive 84), Father: Mental Illness (suicide when she was 4) Family History Comment/Other: 3 grown children 34, 32 and 31 all out of house, healthy, although per records 1 son with schizophrenia, ED admit 2012 due to SI with issues with son (patient presented w/ aggressive behavior, given zyprexa in ED/chemical restraint). On disability but does not expand on prior work, or activity at home Living arrangement: At home Living Situation: With spouse/s.o. ( Celso ) - Substance History Use: Uses substance without health or social issues: Tobacco (occasional, "a pack lasts over a week"), Alcohol (reports infrequent use, defensive when asked re: use "not much" but per records has had ED presentation due to ETOH use, last 12/03 w/ hand lac), Other (no illicits) - POLST Patient has POLST: No Meds/Allgy - Home Medications Home Medications: Ambulatory Orders Medication Instructions Recorded Confirmed Acyclovir 400 mg PO DAILY 04/15/13 04/16/17 Tecfidera 240 mg ORAL BID 04/15/13 04/16/17 Omeprazole 40 mg PO DAILY 12/24/14 04/16/17 Tizanidine HCl [Zanaflex] 2 mg PO TID 12/24/14 04/16/17 Venlafaxine [Effexor] 2 tab ORAL DAILY 12/24/14 04/16/17 Oxybutynin [Ditropan] 1 - 4 tab PO .FREQ 08/11/16 04/16/17 Sucralfate Malate, Polymerized 1 gm MM QID PRN #30 paste..ml. 08/11/16 04/16/17 [Orafate] Lidocaine Viscous 2% [Xylocaine 5 ml PO Q4H PRN #1 bottle 11/06/17 Viscous 2%] Nystatin 500,000 unit PO QID #200 ml 11/06/17 Ondansetron HCl [Zofran] 4 mg PO Q6H PRN #20 tablet 11/06/17 Pantoprazole [Protonix] 40 mg PO DAILY #30 tablet 11/06/17 Gabapentin 300 mg PO BID 12/26/19 12/27/19 Metoprolol Tartrate [Lopressor] 50 mg PO BID 12/26/19 12/26/19 prednisoLONE 1% OPHTH DROPS [Pred 1 drops RIGHTEYE BID 12/26/19 12/26/19 Forte 1% Ophth Drops] - Allergies Allergies/Adverse Reactions: Allergies Allergy/AdvReac Type Severity Reaction Status Date / Time amoxicillin [Amoxicillin] Allergy Rash Verified 12/26/19 13:52 ciprofloxacin [From Cipro] Allergy unknown Verified 12/26/19 13:52 ciprofloxacin HCl * Allergy unknown Verified 12/26/19 13:52 [From Cipro] meperidine HCl * AdvReac Severe Rash Verified 12/26/19 13:52 [From Demerol] Review of Systems - Constitutional Constitutional: reports: Weight gain (25 lb weight gain over ~ 6 months). denies: Fatigue (denies excessive fatigue), Weight loss - Eyes Eyes: reports: Pain (as per HPI), Spots in vision (describes "floaters" as per HPI). denies: Field loss, Vision loss, Dipolpia - Ears, Nose & Throat Ears, Nose & Throat: reports: Hearing loss. denies: Vertigo, Nasal obstruction, Nasal congestion, Sore throat, Hoarseness - Cardiovascular Cariovascular: reports: Palpitations (not recently, she is not clear whether she has afib vs SVT "on metoprolol) - Respiratory Respiratory: denies: Cough, Wheezing, SOB at rest, SOB with exertion - Gastrointestinal Gastrointestinal: reports: Constipation (does not specify frequency , "sometimes'). denies: Abdominal distention, Diarrhea, Black stools, Bloody stools, Nausea, Vomiting - Genitourinary Genitourinary: reports: Frequency, Other (hasnt been on ditropan ~ 1 yr, had some refills). denies: Dysuria, Urgency - Musculoskeletal Musculoskeletal: reports: Muscle pain (is vague currently about where she has muscle spasms, not taking tizanidine (on baclofen in past)), Muscle aches, Other (Right hand injury due to glass breaking when inebriated.) - Integumentary Integumentary: denies: Rash - Neurological Neurological: reports: Other (as per HPI). denies: Dizziness, Memory problems, Abnormal gait (Denies imbalance or that she is "furnitue walking"), Slurred speech - Psychiatric Psychiatric: reports: Anxiety - Endocrine Endocrine: denies: Polyuria, Polydypsia - Hematologic/Lymphatic Hematologic/Lymphatic: denies: Anemia, Bruising Exam - Vital Signs Reviewed Vital Signs: Yes Vital Signs: Vital Signs x48h Temp Pulse Resp BP Pulse Ox 12/26/19 15:43 70 17 103/74 96 12/26/19 15:18 58 L 15 124/81 H 97 12/26/19 14:32 61 12 141/99 H 99 12/26/19 13:45 36.9 C 70 18 146/87 H 100 - Physical Exam General Appearance: positive: Alert, Anxious, Other (lying on ED stretcher when initially seen Rm 9 with wincing when room light turned on looks sl older than stated age. Was just being prepared for tranfer to inpatient bed. Seen when arrived in room . Transferred self with no difficulty stretcher>standing>to bed) Eyes Bilateral: positive: Normal inspection, PERRL, EOMI, Other (no field deficit, describes flashing effect on R like blinds opening/closing) ENT: positive: ENT inspection nml (own teeth), Dry mucous membranes (, very slightly dry tongue) Neck: positive: Nml inspection. negative: Stiff neck Respiratory: positive: Chest non-tender, No respiratory distress, Breath sounds nml Cardiovascular: positive: Regular rate & rhythm (Rate 50's). negative: No murmur Peripheral Pulses: positive: 2+ (radial, DP, PT) Abdomen: positive: Non-tender, No organomegaly, No distention (no specific tenderness but shows area of numbness R groin down thigh and around back), Other (old faint scar from shingles L upper abd). negative: Hepatomegaly Back: positive: Other (no point tenderness along spine she demonstrates by wrapping hands around lower back where also has paresthesia). negative: CVA tenderness (R), CVA tenderness (L) Skin: positive: Warm, Dry. negative: No rash Extremities: negative: No pedal edema Neurologic/Psychiatric: positive: Oriented x3, Sensation nml (no sharp dull differentiation lower abd, + normal position sense bilat great toes.), Mood/affect nml (anxious frustrated during interview, but oriented, CN 2-12 intact, visual exam as above, face symmetric, Bilat upper and lower ext 5/5 strenght (cant fully assess R hand due to injury, bandage). Signs admit papers w/ left hand (dominant) w/ no difficulty. + hot cold sensation, R groin numb to touch), Sensory loss (as per HPI). negative: Facial droop, Slurred/abnml speech (articulate, though frustrated in answering question;s) Conclusion/Plan - Problem List (1) Multiple sclerosis exacerbation Conclusion/Plan: Per ED discussion with Dr Mcduffie (? sp) at [facility]; -1 gram solumedrol daily 3-5 days with daily eval not currently on immunomodulatory treatment -MRI brain, C spine, T spine rule out other pathology, confirm MS After imaging, will contact Dr Stanton re further recs Will check if could get IV solumedrol in [facility] as in 2017 No evident infection as precipitant -For symptomatic management, continue recently started gabapentin for paresthesias, shooting pain Will hold off on NSAID given high dose steroid currently given risk to gastric mucosa On DC will stess gabapentin for neurologic pain, (given she is taking 1200mg ibu daily, risks of eventual SE's likely exceed any benefit she is getting (no anemia or symptoms to suggest related GI bleed) - resume oxybutynin, check post void residual PVR 0 -daily miralax for constipation -have check dosing of pred eye gtt -resume tizainidine (start w/ 2 mg TID) -f/u with neuro for hopeful immunomodulatory agent if possile Resume recently started gabapentin -PT OT eval in am (2) Volume depletion Conclusion/Plan: mild/ BUN/Cr 23/0.9 may be related to the regular IBuprofen use, Creatinine thankfully normal with the Ibu dosing she describes H/H normal, no suspect GIB w/ high dose Ibu gentle hydration overnight, 1 L recheck BUN in am encourage PO (3) Multiple sclerosis Conclusion/Plan: presumably relapsing / remitting If responds to steroids, will contact neurology at [facility] Dr. Stanton for possible follow up to retry immunomodulatory tx if warranted continue symptomatic management as above (4) Gastroesophageal reflux disease Conclusion/Plan: continue PPI/ pantoprazole in house (OTC PPI at home) Qualifiers: Esophagitis presence: esophagitis presence not specified Qualified Code(s): K21.9 - Gastro-esophageal reflux disease without esophagitis (5) Depression Conclusion/Plan: and anxiety Patient reports the venlafaxine was working very well for her mood Wants to resume it Starting at 37.5 daily, will add Rx on discharge (6) Tobacco smoker, 1 pack of cigarettes or less per day Conclusion/Plan: Denies need for nicoderm while here Will d/w patient CXR does show changes suggestive of COPD out pt PFt's if never done advise cessation (7) Arrhythmia Conclusion/Plan: although records note afib, patient unclear on dx, not on anticoagulation [id number] will try to find out if this is SVT vs afib to clear up her records on metoprolol her rate is regular and controlled in the upper 50's currently despite her anxiety CODE status; full - Lab Results Fish Bones: 12/26/19 14:40 12/28/19 07:00 - Diagnostic Imaging Results Diagnostic Imaging Results: positive: Final report reviewed (Chest X ray; 1 view ; no acute cardiopulmonary disease, Mild hyperinflation c/w COPD. Old R 8th rib fx)
[2019-12-26] MEDS ORDERED: SODIUM CHLORIDE 0.9% 1,000 ML IV SCH (18:00)
[2019-12-26] MEDS: SODIUM CHLORIDE FLUSH 0.9% 10 ML SYRINGE IVP SCH (18:07)
[2019-12-26] MEDS: tiZANidine 4 MG TABLET PO SCH (18:30)
[2019-12-26] MEDS: METOPROLOL TARTRATE 25 MG TABLET PO SCH (20:19)
[2019-12-26] MEDS: OXYBUTYNIN 5MG TABLET PO SCH (20:19)
[2019-12-26] MEDS: POTASSIUM CHLORIDE 20 MEQ TABLET PO SCH (20:35)
[2019-12-26] MEDS: ACETAMINOPHEN 325 MG TABLET PO PRN (20:35)
[2019-12-26] MEDS ORDERED: GABAPENTIN 300 MG CAPSULE PO SCH (21:00)
[2019-12-26] MEDS: traZODone 50 MG TABLET PO SCH (22:39)
[2019-12-27] MEDS: ACETAMINOPHEN 325 MG TABLET PO PRN ×3 (00:57→15:56)
[2019-12-27] MEDS: SODIUM CHLORIDE FLUSH 0.9% 10 ML SYRINGE IVP SCH ×3 (00:58→21:01)
[2019-12-27 05:42] LABS: CALCIUM 9.6 mg/dL (8.5-10.3); CREATININE 0.8 mg/dL (0.4-1.0)
[2019-12-27] MEDS: tiZANidine 4 MG TABLET PO SCH ×4 (05:43→21:00)
[2019-12-27] MEDS: PANTOPRAZOLE 40 MG TABLET PO SCH (06:03)
[2019-12-27] MEDS ORDERED: POTASSIUM CHLORIDE 20 MEQ TABLET PO ONE (06:50)
[2019-12-27] MEDS ORDERED: GADOBUTROL 7.5 MMOL/7.5 ML VIAL ONE (07:50)
[2019-12-27] MEDS: GADOBUTROL 7.5 MMOL/7.5 ML VIAL IVP ONE (08:23)
[2019-12-27] MEDS ORDERED: GABAPENTIN 300 MG CAPSULE PO SCH (09:00)
--- NOTE | 2019-12-27 09:04 | PROVIDER PROGRESS NOTE ---
Subjective - Prog Note Date Prog Note Date: 12/27/19 Prog Note Time: 09:04 - Subjective Pt reports feeling: No change Subjective: Seen on return from MRI, anxious , irritable affect "cant hold my urine, its embarrasing, I dont know you'd have to check with [place] (re: confirming whether she hasnt been taking oxybutynin), but"almost fell over in MRI but I caught my balance" , I just need something in my Iv for pain tonight to sleep Later in day after PT, OT eval and with husbands arrival, patient more relaxed somewhat apologetic about not feeling well enough to answer history questions yesterday. patient acknowledges very stressed on admission "I've never had a flare like this, now I know its going to be progressive MS , rather than relapsing remitting" Tima states that she wasnt answering history questions on Tu (e.g. regarding falls or other symptoms ) because she didnt want her to realize how many symptoms she was having. "he's out in the garage working", "but, he knows whats going on " Describes "shag rug" feeling when she rubs leg with her hand, Does not want FSBG checks /corrective insulin with high dose IV solumedrol, doesnt want more IVF. States she will increase water intake with the steroid still very resistent to any medication "plan" other than what she is hoping for "I'm getting a steroid taper starting tomorrow" Current Medications - Current Medications Current Medications: Active Medications Generic Name Dose Route Start Last Admin Trade Name Freq PRN Reason Stop Dose Admin Acetaminophen 650 mg 12/27/19 01:16 12/27/19 05:42 Tylenol PO 650 mg Q4HR PRN Administration Pain or Fever > 38C (100.4F) Alprazolam 0.5 mg 12/27/19 10:41 12/27/19 11:42 Xanax PO 0.5 mg BID PRN Administration Anxiety Enoxaparin Sodium 40 mg 12/27/19 09:00 12/27/19 09:07 Lovenox SUBQ 40 mg DAILY KAMRON Administration Gabapentin 600 mg 12/27/19 12:00 12/27/19 11:42 Neurontin PO 600 mg TID KAMRON Administration Methylprednisolone Sodium 250 mls @ 250 mls/hr 12/27/19 09:00 12/27/19 10:07 Succinate 1,000 mg/ Sodium IV 12/30/19 09:59 Infused Chloride DAILY KAMRON Infusion Metoprolol Tartrate 25 mg 12/26/19 21:00 12/27/19 09:08 Lopressor PO 25 mg BID KAMRON Administration Oxybutynin Chloride 5 mg 12/26/19 21:00 12/27/19 09:08 Ditropan PO 5 mg BID KAMRON Administration Oxycodone HCl 5 mg 12/27/19 21:00 Roxicodone PO 12/27/19 21:01 ONCE ONE Pantoprazole Sodium 40 mg 12/27/19 07:00 12/27/19 06:03 Protonix PO 40 mg QDAC KAMRON Administration Potassium Chloride 20 meq 12/26/19 21:00 12/27/19 09:08 K-Dur PO 12/27/19 21:01 20 meq BID KAMRON Administration Prednisolone 1 drops 12/27/19 11:00 12/27/19 11:46 Pred Forte 1% Ophth Drops RIGHTEYE 1 drops BID KAMRON Administration Sodium Chloride 10 ml 12/26/19 15:37 Normal Saline Flush 0.9% IVP PRN PRN NEEDED PER PROVIDER ORDERS Sodium Chloride 10 ml 12/26/19 17:00 12/27/19 09:09 Normal Saline Flush 0.9% IVP 10 ml 0100,0900,1700 KAMRON Administration Tizanidine HCl 4 mg 12/27/19 12:00 12/27/19 11:42 Zanaflex PO 4 mg TID KAMRON Administration Trazodone HCl 50 mg 12/26/19 22:30 12/26/19 22:39 Desyrel PO 50 mg QPM KAMRON Administration Venlafaxine HCl 37.5 mg 12/27/19 09:00 12/27/19 09:08 Effexor Er PO 37.5 mg DAILY KAMRON Administration Zolpidem Tartrate 5 mg 12/27/19 13:46 Ambien PO QPM PRN Insomnia Acyclovir 400 mg PO DAILY 04/15/13 Tecfidera 240 mg ORAL BID 04/15/13 Omeprazole 40 mg PO DAILY 12/24/14 Tizanidine HCl [Zanaflex] 2 mg PO TID 12/24/14 Venlafaxine [Effexor] 2 tab ORAL DAILY 12/24/14 Oxybutynin [Ditropan] 1 - 4 tab PO .FREQ 08/11/16 Gabapentin 300 mg PO BID 12/26/19 Metoprolol Tartrate [Lopressor] 50 mg PO BID 12/26/19 prednisoLONE 1% OPHTH DROPS [Pred Forte 1% Ophth Drops] 1 drops RIGHTEYE BID 12/26/19 Objective - Vital Signs/Intake & Output Reviewed Vital Signs: Yes Vital Signs: Vital Signs x48h Temp Pulse Resp BP Pulse Ox 12/27/19 08:57 36.5 C 87 16 111/69 97 Intake & Output: Intake & Output 12/24/19 12/25/19 12/26/19 12/27/19 23:59 23:59 23:59 23:59 Intake Total 840 1000 Balance 840 1000 - Objective General Appearance: positive: Alert, Anxious, Other (seen in am after MRI, anxious as above, later w/ here, more relaxed, did work with PT and OT, Doing a cross word puzzle late afternoon, Patient indiciating she will likely go home tomorrow "with a steroid taper" , "he (Dr Stanton) never has given me more than 3 days of IV steroid," Snoring 530p) Eyes Bilateral: positive: EOMI (eyes track evenly, still complains of eye pain, (prednisolone drops resumed),) Neck: negative: Stiff neck Respiratory: positive: No respiratory distress, Breath sounds nml Cardiovascular: positive: Regular rate & rhythm (rate ~ 80), No murmur. negative: Extrasystoles Abdomen: positive: Nml bowel sounds, No distention. 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 negative: Motor nml (gait not assessed, but impaired balance noted per PT eval), Mood/affect nml (very anxious earlier but more relaxed once in, and later in evening more engageable,), Facial droop - Lab Results Fish Bones: 12/26/19 14:40 12/27/19 05:29 Other Labs: Lab Results x24hrs 12/27/19 12/26/19 12/26/19 Range/Units 05:29 14:49 14:40 WBC (4.8-10.8) x10^3/uL RBC (4.20-5.40) 10^6/uL Hgb (12.0-16.0) g/dL Hct (37.0-47.0) % MCV (81.0-99.0) fL MCH (27.0-31.0) pg MCHC (32.0-36.0) g/dL RDW (12.0-15.0) % Plt Count (130-450) 10^3/uL MPV (7.9-10.8) fL Neut # (Auto) (1.5-6.6) 10^3/uL Lymph # (Auto) (1.5-3.5) 10^3/uL [place] # (Auto) (0.0-1.0) 10^3/uL Eos # (Auto) (0.0-0.7) 10^3/uL Baso # (Auto) (0.0-0.1) 10^3/uL Absolute Nucleated RBC x10^3/uL Nucleated RBC % /100WBC Sodium 137 (135-145) mmol/L Potassium 3.2 L (3.5-5.0) mmol/L Chloride 105 (101-111) mmol/L Carbon Dioxide 21 (21-32) mmol/L Anion Gap 11.0 (6-13) BUN 20 (6-20) mg/dL Creatinine 0.8 (0.4-1.0) mg/dL Estimated GFR (MDRD) 74 L (>89) Glucose 192 H (70-100) mg/dL Calcium 9.6 (8.5-10.3) mg/dL Total Bilirubin (0.2-1.0) mg/dL AST (10-42) IU/L ALT (10-60) IU/L Alkaline Phosphatase (42-121) IU/L Troponin I High Sens 4.3 (2.3-14.8) ng/L Total Protein (6.7-8.2) g/dL Albumin (3.2-5.5) g/dL Globulin (2.1-4.2) g/dL Albumin/Globulin Ratio (1.0-2.2) Lipase (22-51) U/L Urine Color YELLOW Urine Clarity CLEAR (CLEAR) Urine pH 5.5 (5.0-7.5) PH Ur Specific [place] 1.015 (1.002-1.030) Urine Protein NEGATIVE (NEGATIVE) mg/dL Urine Glucose (UA) NEGATIVE (NEGATIVE) mg/dL Urine Ketones NEGATIVE (NEGATIVE) mg/dL Urine Occult Blood NEGATIVE (NEGATIVE) Urine Nitrite NEGATIVE (NEGATIVE) Urine Bilirubin NEGATIVE (NEGATIVE) Urine Urobilinogen 0.2 (NORMAL) (NORMAL) E.U./dL Ur Leukocyte Esterase NEGATIVE (NEGATIVE) Ur Microscopic Review NOT INDICATED Urine Culture Comments NOT INDICATED Urine HCG, Qual NEGATIVE 12/26/19 12/26/19 Range/Units 14:40 14:40 WBC 6.8 (4.8-10.8) x10^3/uL RBC 4.85 (4.20-5.40) 10^6/uL Hgb 15.6 (12.0-16.0) g/dL Hct 43.9 (37.0-47.0) % MCV 90.5 (81.0-99.0) fL MCH 32.2 H (27.0-31.0) pg MCHC 35.5 (32.0-36.0) g/dL RDW 12.1 (12.0-15.0) % Plt Count 337 (130-450) 10^3/uL MPV 10.2 (7.9-10.8) fL Neut # (Auto) 3.7 (1.5-6.6) 10^3/uL Lymph # (Auto) 2.1 (1.5-3.5) 10^3/uL [place] # (Auto) 0.7 (0.0-1.0) 10^3/uL Eos # (Auto) 0.2 (0.0-0.7) 10^3/uL Baso # (Auto) 0.1 (0.0-0.1) 10^3/uL Absolute Nucleated RBC 0.00 x10^3/uL Nucleated RBC % 0.0 /100WBC Sodium 136 (135-145) mmol/L Potassium 3.2 L (3.5-5.0) mmol/L Chloride 99 L (101-111) mmol/L Carbon Dioxide 25 (21-32) mmol/L Anion Gap 12.0 (6-13) BUN 23 H (6-20) mg/dL Creatinine 0.8 (0.4-1.0) mg/dL Estimated GFR (MDRD) 74 L (>89) Glucose 109 H (70-100) mg/dL Calcium 9.8 (8.5-10.3) mg/dL Total Bilirubin 0.8 (0.2-1.0) mg/dL AST 16 (10-42) IU/L ALT 17 (10-60) IU/L Alkaline Phosphatase 80 (42-121) IU/L Troponin I High Sens (2.3-14.8) ng/L Total Protein 7.4 (6.7-8.2) g/dL Albumin 4.5 (3.2-5.5) g/dL Globulin 2.9 (2.1-4.2) g/dL Albumin/Globulin Ratio 1.6 (1.0-2.2) Lipase 38 (22-51) U/L Urine Color Urine Clarity (CLEAR) Urine pH (5.0-7.5) PH Ur Specific [place] (1.002-1.030) Urine Protein (NEGATIVE) mg/dL Urine Glucose (UA) (NEGATIVE) mg/dL Urine Ketones (NEGATIVE) mg/dL Urine Occult Blood (NEGATIVE) Urine Nitrite (NEGATIVE) Urine Bilirubin (NEGATIVE) Urine Urobilinogen (NORMAL) E.U./dL Ur Leukocyte Esterase (NEGATIVE) Ur Microscopic Review Urine Culture Comments Urine HCG, Qual - Diagnostic Imaging Diagnostic Imaging Comments: MRI brain still pending 1530p Assessment/Plan - Problem List (1) Multiple sclerosis exacerbation Impression: Day 2 Solumedrol 1000mg daily (3-5 days per ED d/w Dr Mcduffie/ Marissa depending on response Patient not noting any significant improvement since yesterday MRI brain result pending (still pending late PM, per food service technician, radiologist has dictated, having issues getting report to show up on PACS/EMR MRI C and T spine to be done tomorrow No other pathology suspect for her symptoms, no evident infection as 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 Stanton (primary neurologist)if can continue as outpatient and plan for f/u likely need to resume immunomodulatory Rx 2 Multiple sclerosis symptomatic managment Patient not currently on immunomodulatory Rx due to cost for several years and or side effects Recently started gabapentin ~ early Dec for paresthesias neuropathic pain persists, -increasing to 600mg tid holding off on concurrent ibuprofen since on high dose solumedrol On DC will stess gabapentin for neurologic pain, (given she is taking 1200mg ibu daily, risks of eventual SE's likely exceed any benefit she is getting (no anemia or symptoms to suggest related GI bleed) - continue oxybutynin, check post void residual PVR 0 -daily miralax for constipation -PT OT eval today very informative PT; noted overall strength, balance,and functional mobility deficit and recommends outpatient PT for balance, stength, gait deficit and FWW for ambulation (or at least w/ assist) OT recommends Bedside commode, Grab bars, bed rail (DC conference planner aware, may need to look to PPTV) (2) Volume depletion Conclusion/Plan: mild/ BUN/Cr 23/0.9 improved to 20/0.8 with hydration overnight tolerating PO intake Will contine IV fluid (if patient permits) to help "dilute" mild steroid induced hyperglycemia, but as under S, she doesnt want IVF running and doesnt want POC glucose testing (3) Multiple sclerosis Conclusion/Plan: presumably relapsing / remitting vs now progressive(?) If responds to steroids, will contact neurology at [facility] Dr. Stanton for possible follow up to retry immunomodulatory tx if warranted continue symptomatic management as above (4) Gastroesophageal reflux disease Conclusion/Plan: continue PPI/ pantoprazole in house (OTC PPI at home) as above holding her NSAID e (5) Depression Conclusion/Plan: and anxiety Resumed 37.5 Venlafaxine daily will add Rx on discharge (she reports very good response to this before) Given her anxiety, stress will avoid interuppting sleep tonight,no middle of night vital signs once asleep (aware RNs at least obligated to check resps) will give dose oxycodone 5 mg x 1 (she reports R hand pain interfering with sleep, aware IV analgesic not warranted), ambien 5 mg if no relief (6) Tobacco smoker, 1 pack of cigarettes or less per day Conclusion/Plan: Denied need for nicoderm while here Will d/w patient on discharge CXR does show changes suggestive of COPD out pt PFt's if never done advise cessation (patient anxious, irritable at times confrontational, will not address this righ t at this moment) (7) Arrhythmia Conclusion/Plan: although records note afib, patient unclear on dx, not on anticoagulation [id number] 1 Review of records note cardioversion 1998 and 2005 for "arrhythmia" / will explore further if this was SVT rather than afib at any rate rate is regular on home metoprolol. Addendum; I find no records of formal Dx. If patient has palpitations will check EKG , would be helpful to correct on record if this was SVT, not afib (4) Gastroesophageal reflux disease Qualifiers: Esophagitis presence: esophagitis presence not specified Qualified Code(s): K21.9 - Gastro-esophageal reflux disease without esophagitis
[2019-12-27] MEDS: methylPREDNISolone SUCCINATE 1,000 MG in SODIUM CHLORIDE 0.9% 250 ML IV SCH (09:07)
[2019-12-27] MEDS: ENOXAPARIN 40 MG/0.4 ML SYRINGE SUBQ SCH (09:07)
[2019-12-27] MEDS: POTASSIUM CHLORIDE 20 MEQ TABLET PO SCH ×2 (09:08→21:00)
[2019-12-27] MEDS: OXYBUTYNIN 5MG TABLET PO SCH ×2 (09:08→21:00)
[2019-12-27] MEDS: METOPROLOL TARTRATE 25 MG TABLET PO SCH ×2 (09:08→21:00)
[2019-12-27] MEDS: VENLAFAXINE ER 37.5 MG CAPSULE PO SCH (09:08)
[2019-12-27] MEDS: ALPRAZolam 0.25 MG TABLET PO PRN (11:42)
[2019-12-27] MEDS: GABAPENTIN 100 MG CAPSULE PO SCH ×3 (11:42→20:59)
[2019-12-27] MEDS: prednisoLONE 1% OPHTH DROPS 75 DROPS/5 ML BOTTLE RIGHTEYE SCH ×2 (11:46→21:16)
[2019-12-27] MEDS ORDERED: GABAPENTIN 400 MG CAPSULE PO SCH (12:00)
[2019-12-27] MEDS ORDERED: ZOLPIDEM 5 MG TABLET PO PRN (13:46)
[2019-12-27] MEDS ORDERED: GABAPENTIN 100 MG CAPSULE PO SCH (14:00)
[2019-12-27] MEDS ORDERED: polyethylene glycoL 3350 17 GM PACKET PO PRN (14:47)
--- NOTE | 2019-12-27 16:45 | PHARMACY PROGRESS NOTE ---
- Best Possible Medication History Admit Date and Time: 12/26/19 1537 Processed by: Pharmacy Medication History completed: Yes Patient Interview: Pt interview ONLY source (MULTIPLE ATTEMPTS MADE TO SOURCE MEDICATIONS LISTED WITHOUT SUCCESS.) As the person ultimately responsible for medication therapy, providers are able to order a medication from an existing home medication list in [facility] via the "Reconcile Routine" prior to Confirmation of that medication by faculty support coordinator. Such practice is discouraged except when the physician, in their clinical judgment, deems that a medical need exists for a medication without regard to previous use.
[2019-12-27] MEDS ORDERED: MAG HYDROX/AL HYDROX/SIMETH 30 ML UDC PO PRN (19:17)
[2019-12-27] MEDS ORDERED: oxyCODONE 5 MG TABLET PO ONE (21:00)
[2019-12-27] MEDS: traZODone 50 MG TABLET PO SCH (21:00)
[2019-12-28] MEDS: SODIUM CHLORIDE FLUSH 0.9% 10 ML SYRINGE IVP SCH ×2 (01:07→08:27)
[2019-12-28] MEDS: GABAPENTIN 100 MG CAPSULE PO SCH ×2 (06:29→14:21)
[2019-12-28] MEDS: PANTOPRAZOLE 40 MG TABLET PO SCH (06:30)
[2019-12-28] MEDS: ACETAMINOPHEN 325 MG TABLET PO PRN ×2 (06:30→11:35)
[2019-12-28] MEDS: tiZANidine 4 MG TABLET PO SCH ×2 (06:36→14:21)
[2019-12-28] MEDS ORDERED: BENZOCAINE/MENTHOL LOZENGE MM PRN (06:41)
[2019-12-28 07:12] LABS: CALCIUM 9.1 mg/dL (8.5-10.3); CREATININE 0.8 mg/dL (0.4-1.0)
[2019-12-28] MEDS: VENLAFAXINE ER 37.5 MG CAPSULE PO SCH (08:10)
[2019-12-28] MEDS: METOPROLOL TARTRATE 25 MG TABLET PO SCH (08:10)
[2019-12-28] MEDS: OXYBUTYNIN 5MG TABLET PO SCH (08:10)
[2019-12-28] MEDS: ENOXAPARIN 40 MG/0.4 ML SYRINGE SUBQ SCH (08:10)
[2019-12-28 08:12] VITALS: BP 102/64
[2019-12-28] MEDS: methylPREDNISolone SUCCINATE 1,000 MG in SODIUM CHLORIDE 0.9% 250 ML IV SCH (08:12)
--- NOTE | 2019-12-28 08:20 | PROVIDER PROGRESS NOTE ---
Subjective - Prog Note Date Prog Note Date: 12/28/19 Prog Note Time: 08:17 - Subjective Pt reports feeling: No change Subjective: RN reported patient indicating she "would not be pleasant today, that her valium had been stopped (hasnt taken in at least a year , isnt on the full venlafaxine dose she once was on, wants oxycodone I spoke with patient ~ 10 minutes, lying quietly on side when I entered, and engageable, had started drinking coffee, She indicated she did sleep ~ 6 hrs last night , good sleep, conversant, After ~ 10 minutes of discussing symptoms, plan for day (MRI ~ 1100 per radiology, I plan to speak w/ Dr Stanton), she abruptly said "I'm in pain you know , I want oxycodone 5 mg in the morning and in the evening. I used to be on oxycodone Re: ocular symptoms, states she's unable to comment if floaters , flashing still present, then notes they are still there, but unable to comment on photophobia, although tolerating looking towards R where garcia light and room light on RE: R lower back, and R groin, R thigh numbness/paresthesia , patient initially equivocal about any impovement, then denies improvement in the parestesias contacted Michelle Falcon re: still unable to get access to MRI read of brain MRI yesterday Current Medications - Current Medications Current Medications: Active Medications Generic Name Dose Route Start Last Admin Trade Name Freq PRN Reason Stop Dose Admin Acetaminophen 650 mg 12/27/19 01:16 12/28/19 06:30 Tylenol PO 650 mg Q4HR PRN Administration Pain or Fever > 38C (100.4F) Al Hydroxide/Mg Hydroxide 30 ml 12/27/19 19:17 12/27/19 21:18 Mylanta Plus PO 30 ml Q4HR PRN Administration INDIGESTION Alprazolam 0.5 mg 12/27/19 10:41 12/27/19 11:42 Xanax PO 0.5 mg BID PRN Administration Anxiety Enoxaparin Sodium 40 mg 12/27/19 09:00 12/28/19 08:10 Lovenox SUBQ 40 mg DAILY KAMRON Administration Gabapentin 600 mg 12/27/19 12:00 12/28/19 06:29 Neurontin PO 600 mg TID KAMRON Administration Methylprednisolone Sodium 250 mls @ 250 mls/hr 12/27/19 09:00 12/28/19 08:12 Succinate 1,000 mg/ Sodium IV 12/30/19 09:59 250 mls/hr Chloride DAILY KAMRON Administration Metoprolol Tartrate 25 mg 12/26/19 21:00 12/28/19 08:10 Lopressor PO 25 mg BID KAMRON Administration Oxybutynin Chloride 5 mg 12/26/19 21:00 12/28/19 08:10 Ditropan PO 5 mg BID KAMRON Administration Pantoprazole Sodium 40 mg 12/27/19 07:00 12/28/19 06:30 Protonix PO 40 mg QDAC KAMRON Administration Polyethylene Glycol 17 gm 12/27/19 14:47 Miralax PO DAILY PRN Bowel Protocol Prednisolone 1 drops 12/27/19 11:00 12/27/19 21:16 Pred Forte 1% Ophth Drops RIGHTEYE 1 drops BID KAMRON Administration Sodium Chloride 10 ml 12/26/19 15:37 Normal Saline Flush 0.9% IVP PRN PRN NEEDED PER PROVIDER ORDERS Sodium Chloride 10 ml 12/26/19 17:00 12/28/19 01:07 Normal Saline Flush 0.9% IVP Not Given 0100,0900,1700 KAMRON Throat Lozenges 1 lozenge 12/28/19 06:41 12/28/19 07:39 Cepacol MM 1 lozenge Q2HR PRN Administration Throat pain Tizanidine HCl 4 mg 12/27/19 12:00 12/28/19 06:36 Zanaflex PO 4 mg TID KAMRON Administration Trazodone HCl 50 mg 12/26/19 22:30 12/27/19 21:00 Desyrel PO 50 mg QPM KAMRON Administration Venlafaxine HCl 37.5 mg 12/27/19 09:00 12/28/19 08:10 Effexor Er PO 37.5 mg DAILY KAMRON Administration Zolpidem Tartrate 5 mg 12/27/19 13:46 12/27/19 21:08 Ambien PO 5 mg QPM PRN Administration Insomnia Acyclovir 400 mg PO DAILY 04/15/13 Tecfidera 240 mg ORAL BID 04/15/13 Omeprazole 40 mg PO DAILY 12/24/14 Tizanidine HCl [Zanaflex] 2 mg PO TID 12/24/14 Venlafaxine [Effexor] 2 tab ORAL DAILY 12/24/14 Oxybutynin [Ditropan] 1 - 4 tab PO .FREQ 08/11/16 Gabapentin 300 mg PO BID 12/26/19 Metoprolol Tartrate [Lopressor] 50 mg PO BID 12/26/19 prednisoLONE 1% OPHTH DROPS [Pred Forte 1% Ophth Drops] 1 drops RIGHTEYE BID 12/26/19 Objective - Vital Signs/Intake & Output Reviewed Vital Signs: Yes Vital Signs: Vital Signs x48h Temp Pulse Resp BP BP Pulse Ox 12/28/19 08:10 102/64 12/28/19 07:50 36.7 C 55 L 17 105/64 98 Intake & Output: Intake & Output 12/25/19 12/26/19 12/27/19 12/28/19 23:59 23:59 23:59 23:59 Intake Total 840 2130 Balance 840 2130 - Objective General Appearance: positive: No acute distress, Alert, Other (conversant for ~ 10 minutes, then abruptly said I'm in pain, I want oxycodone, I used to be on oxycodone, GAbapentin takes a while to work,) Eyes Bilateral: positive: Other (visual acuity normal, reads sign on wall, no field deficit, of note she is not wincing with eye opening,) - Lab Results Fish Bones: 12/26/19 14:40 12/28/19 07:00 Other Labs: Lab Results x24hrs 12/28/19 Range/Units 07:00 Sodium 140 (135-145) mmol/L Potassium 4.1 (3.5-5.0) mmol/L Chloride 106 (101-111) mmol/L Carbon Dioxide 25 (21-32) mmol/L Anion Gap 9.0 (6-13) BUN 22 H (6-20) mg/dL Creatinine 0.8 (0.4-1.0) mg/dL Estimated GFR (MDRD) 74 L (>89) Glucose 125 H (70-100) mg/dL Calcium 9.1 (8.5-10.3) mg/dL Assessment/Plan - Problem List (4) Gastroesophageal reflux disease Qualifiers: Esophagitis presence: esophagitis presence not specified Qualified Code(s): K21.9 - Gastro-esophageal reflux disease without esophagitis
[2019-12-28] MEDS: prednisoLONE 1% OPHTH DROPS 75 DROPS/5 ML BOTTLE RIGHTEYE SCH (08:25)
--- NOTE | 2019-12-28 09:19 | MRI Report ---
PROCEDURE: Brain W/WO INDICATIONS: MS flare up CONTRAST: IV CONTRAST: Gadavist ml: 6 TECHNIQUE: Noncontrast axial T1 spin echo, axial T2 fast spin echo, sagittal and axial FLAIR, coronal T2 fast sp in echo, axial gradient echo, axial diffusion and ADC through the brain. After the administration of contrast, axial and coronal T1 spin echo with fat saturation through the brain. COMPARISON: None. FINDINGS: Image quality: Excellent. CSF spaces: Basal cisterns are patent. No extra-axial fluid collections. Ventricles are normal in size and shape. Brain: No midline shift. No intracranial bleeds or masses. There are bilateral scattered white suly er signal changes presumably reflecting patient's given clinical history of demyelination disorder No abnormal intracranial enhancement. There is cerebral volume loss for age. There is periventricu lar white matter chronic small vessel ischemic change. The brainstem appears normal. Diffusion-weig hted images demonstrate no acute ischemic insults. No chronic ischemic insults. Normal intravascula r flow voids are present. Skull and face: Calvarial marrow is normal in signal. Orbits appear normal. Sinuses: Sinuses and mastoids appear clear. IMPRESSION: Diffuse white matter signal changes presumably related to patient's given clinical histo ry of demyelination disorder. No definite associated enhancement identified. No acute intracranial abnormality. No evidence of acute ischemia. Reviewed by: Maxi Garcia MD on 12/27/2019 9:07 AM PDT Approved by: Maxi Garcia MD on 12/27/2019 9:07 AM PDT Station ID: [id number]
[2019-12-28] MEDS: ALPRAZolam 0.25 MG TABLET PO PRN (11:36)
[2019-12-28] MEDS ORDERED: GADOBUTROL 7.5 MMOL/7.5 ML VIAL ONE (11:52)
--- NOTE | 2019-12-28 11:52 | Discharge Plan ---
Discharge Plan Problem Reviewed?: Yes Disposition: Home, Self Care Condition: Stable Prescriptions: Oxybutynin [Ditropan] 5 mg PO BID #60 tab Venlafaxine [Effexor] 75 tab ORAL DAILY #30 tab predniSONE [Prednisone] 20 mg PO DAILY #11 tablet Tizanidine HCl [Zanaflex] 2 mg PO TID #90 cap Diet: Regular Activity Restrictions: Use walker/fallrisk Shower Restrictions: No (use shower chair, grab bars due to fall risk) Driving Restrictions: Yes (until back to baseline) Assistance Devices: Walker (use FWW walker OR standby assist from [employer] or [employer] vicky is with you when up) Weight Bearing: Full Weight Health Concerns: Multiple sclerosis Exacerbation (Relapse You came to the hospital with neurologic symptoms concerning for an MS exacerbation. The ER contacted the oncall neurologist at [facility] who suspected an MS flare and recommended 3-5 days of high dose steroid as well as MRI of the Brain and MRI of the cervical spine and thoracic spine. MRI of thoracic spine does demonstrate an enhancing lesion at the level of T 9, MRI brain with no new enhancing lesions, C spine MRI without new enhancing lesions. Imaging discussed with Dr Stanton; he advised no need to treat acutely with more than the 3 doses of high dose steroid you received in the office Contact the MS clinic [phone] for follow up (he indicated no urgency; in the next few weeks) He noted there might be a means to treat with Tekfidera at little or even no cost Weakness related to MS On day 2 of the high dose steroid Physical Therapy and Occupational Therapy PT evaluation noted overall deficits in strength, balance,and functional mobility recommends outpatient PT for balance, strength, gait deficit and recommends you use FWW for ambulation (or at least w/ assist) due to fall risk and history of falls OT recommends Bedside commode, Grab bars, bed rail (resource contact given to you by merchandise planner) For symptomatic management; - Gabapentin was continued for neuropathic/nerve pain (increased to 600 mg 3x / day since you have already been on 300,300, 600 x 3 weeks with no improvement - Tizadine was restarted for spasm/ prescription sent to [facility] (you may increase to 4 mg 3 x daily until follow up) -ditropan (oxybutynin) was restarted for urinary dribbling (Urinalysis was normal, and you had no retention of urine) 5 mg twice daily (Rx sent to [facility] - miralax if needed was added for constipation - Your venlafaxine was restarted for at 37.5 mg for mood (you can increase to 75 mg , then can increase in increments of no more than 75 mg every 4-5 days to a maximum of 225 mg daily. (can sometimes also help with nerve pain as well (Rx sent to [facility] Prescriptions for these were included at discharge History of atrial fibrillation or supraventricular tachycardia your old home dose of metoprolol is noted as 50 mg twice daily You are only getting 25 mg twice daily here, and your blood pressure and heart rate do not allow a higher dose If taking 50 mg twice daily Optic neuritis continue the previously prescribed pred Forte drops Follow up with the ophthamologist follow up with previously scheduled orthopedic surgeon for your hand injury contact Dr Hamilton for follow up until you choose a different PCP Follow-Up Care: Outpatient Rehab - PT No Smoking: If you smoke, Please STOP! Call for help. Follow-up with: MOLLY HAMILTON MD [Provider Admit Priv/Credential] -
--- NOTE | 2019-12-28 14:00 | MRI Report ---
PROCEDURE: Thoracic Spine W/WO INDICATIONS: ? MS Flare CONTRAST: IV CONTRAST: Gadavist ml: 6 TECHNIQUE: Noncontrast sagittal T1 spin echo and T2 fast spin echo, sagittal STIR, axial T1 and T2 fast spin ech o through the thoracic spine. After the administration of contrast, axial and sagittal T1 spin echo with fat saturation through the thoracic spine. COMPARISON: No comparison studies available FINDINGS: Image quality: Suboptimal, with excessive patient motion artifact on the axial sequences. Images harvinder in diagnostic, however. Alignment and curvature: Normal thoracic vertebral body height and alignment. Marrow: The suspicious focal marrow signal abnormality or abnormal enhancement in the vertebral colum n. Spinal cord: There is a focus of increased T2 signal in the right posterior cord at the T9 level (ser ies 1001 image 30, series 1401 image 30, series 1201 image 7, and series 601 image 7).). This demonst rates corresponding enhancement on the postcontrast image, suggesting an actively demyelinating lesio n. No additional thoracic cord signal abnormality demonstrated, with caveat that exam is of degraded by patient motion artifact. Regional soft tissues: Prevertebral and paraspinous soft tissues are unremarkable without abnormal en hancement. Miscellaneous: And no spinal canal or neural foraminal stenosis in the thoracic spine. IMPRESSION: Enhancing T2 hyperintense lesion in the right posterolateral cord at the T9 level, which given the pr ovided history is consistent with an actively demyelinating MS lesion. Imaging appearance is not enti rely specific, however, a small cord neoplasm would appear indistinguishable. Reviewed by: Edinson Robins MD on 12/28/2019 1:59 PM PDT Approved by: Edinson Robins MD on 12/28/2019 1:59 PM PDT Station ID: [id number]
--- NOTE | 2019-12-28 14:04 | MRI Report ---
PROCEDURE: Cervical Spine W/WO INDICATIONS: ? ms FLARE CONTRAST: IV CONTRAST: Gadavist ml: 6 TECHNIQUE: Noncontrast sagittal T1 spin echo and T2 fast spin echo, sagittal STIR, sagittal PD fast spin echo, f oraminal oblique sagittal T2 fast spin echo, axial gradient echo or T2 fast spin echo through the cer vical spine. After the administration of contrast, sagittal and axial T1 spin echo with fat saturati on through the cervical spine. COMPARISON: None. FINDINGS: Image quality: Excellent. Alignment and curvature: Normal cervical vertebral body height and alignment. Marrow: No suspicious focal marrow signal abnormality or abnormal enhancement within the marrow space . Spinal cord: No cervical cord signal abnormality. No abnormal enhancement within the intradural dat rtment. No spinal canal stenosis. Regional soft tissues: Prevertebral and paraspinous soft tissues unremarkable without abnormal signal or enhancement. IMPRESSION: No cervical cord signal abnormality or abnormal cord enhancement. No evidence of demyelinating diseas e in the cervical spine. Reviewed by: Edinson Robins MD on 12/28/2019 2:02 PM PDT Approved by: Edinson Robins MD on 12/28/2019 2:02 PM PDT Station ID: [id number]
[2019-12-28] MEDS: GADOBUTROL 7.5 MMOL/7.5 ML VIAL IVP ONE (14:40)
--- NOTE | 2019-12-29 20:06 | DISCHARGE SUMMARY ---
Discharge Summary Admit Date: 12/26/19 Discharge Date: 12/28/19 Discharging Provider: CONNIE Khan Primary Care Provider: Has no PCP, Dr. Davis "acting" as PCP til 01/30 from [facility] Code Status: Attempt Resuscitation Condition at Discharge: Stable Discharge Disposition: 01 Home, Self Care Discharge Facility [facility]: [facility] - DIAGNOSES Admission Diagnoses: Multiple Sclerosis Exacerbation Volume Depletion Depression/anxiety GERD Tobacco smoker Arrhythmia history Discharge Diagnoses with Status of Each Condition: Multiple Sclerosis Exacerbation; stable, ambulatory confirmed w/ enhancing lesion T9 on MRI, completed 3 days high dose steroid Volume Depletion; mild, resolved Depression/anxiety; stable GERD ; stable Tobacco smoker; unchanged Arrhythmia history ; not evident this admission - HPI History of Present Illness: 54 yo female w/ Hx MS presented w Right abd, RLE paresthesias and neuropathic pain Patient during interview frequently frustrated , somewhat confrontational and evasive with answers, comments to the effect of "I cant do this any more", "always answering the same questions"," I've gone thru 5 PCP's, They keep leaving". Doesnt currently have a PCP . "thats the thing, I dont even know who my PCP is." 54 year old female with known MS (Dr Stanton/neurology/[facility]) since 2005 who is currently on no immunomodulatory tx (reports none of them worked, first Capoxone, Rebif, last agent Tekfidera subjectively with improvement but she discontinued it ~ 2 yrs ago due to cost and reported insurance not covering.) She also has not been taking most previously Rx'd meds for MS symptoms (e.g ditropan) managing pain with "600 mg bid ibuprofen daily for months" presents to the ED with complaints of paresthesias, numbness and sharp stabbing pains. This is primarily in the Right leg, perineum, Right groin, Right abominal paresthesia/numbness. She notes she was in her usual health until ~ 5 days ago other than seeing local ophtmalogist ~ 1 week ago for "floaters and phtophobia".Denies diplopia, reports a visual effect like blinds closing on R, no field deficit Ophthamologist discussed w/ Dr. 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 Barrera (neuroophthamology) did sug gest the optic neuritis could be MS flare. He rx'd prednisone drops. She does not recall dosing (is using). Continues w/ visual symptoms and photophobia She denies incontinence, but later acknowledges occasional dribbling. negative dysuria. hasnt been taking the oxybutynin + constipation "maybe". Denies signigicant motor deficits, denies falls (other than one that was alcohol related 12/03,she denies heavy ETOH use and notes it was due to stress w/ issues with her mother), " I can do all my ADL's" Denies "furniture walking" . Denies cognitive issues w/ MS but during interview frequently says I dont know I cant think right now. She reports stabbing pain " all over her body" . She was presc ribed gabapentin 300 am, 300 noon and 600 pm for the paresthesias and neuropathic pain after she had a RUE hand injury due to fall on glass. There is no associated fever, chills, No leukocytosis on labs ( WBC 6.8, H/H normal . Chemistries normal other than mild hypokaleia 3.2. No known malignanc y. UA unremarkable in ED Her initial presentation in 2005 ws due to fatigue and parestehsias. She denies any ocular problems at the time of diagnosis. In the ED , spoke with Dr Joiner (? Juanpablo) from [facility] who reviewed patients prior records. He felt this was most c/w MS exacerbation and recommended inpatient solumedrol 3-5 days 1 gram and evaluate response and MRI brain, Cspine, T spine. - CONSULTS | PROCEDURES Consultations: informal discussion w/ Dr Stanton [facility] neurology Procedures: none - HOSPITAL COURSE Hospital Course: 1 Multiple sclerosis Exacerbation/ Relapse in patient /not on immunomodulatory therapy Received 3 days high dose Solumedrol 1000mg daily per [facility] neurologys recommendation Relapse confirmed w/ enhancing lesion T9 on MRI CT brain and C spine w/ no enhancing lesions Discussed w/ Dr. Stanton 12/28 after MRI result. Patient clinically stable for discharge (evaluated by PT/OT see recs below) Dr Stanton reviewed old records , Patient had not been in MS clinic in 3 yrs/ 2016, of note she did have a few "no show's ". He noted she could possibly (and could have 3 yrs ago) gottenTekfidera at little to no cost thru their clinic he also noted the complaints of pain she had at the time he saw her were not clearly r/t MS, and it was not the MS clinic that Rx'd some of the meds she was on at the time eg oxycodone He noted no need to continue additonal days high dose steroid, no taper needed. (patient very insistent on steroid taper; gave [id number] at her aggravated insistence She is to contact MS clinic [phone] Stanton indicated no urgency; in the next few weeks) \\ 2 Multiple sclerosis symptomatic managment Recently started gabapentin ~ early Dec for paresthesias neuropathic pain persists, increased to 600mg tid holding off on concurrent ibuprofen / advised to reduce home dose - continue oxybutynin,(rx)PVR was negative this admission though she reported c onstant dribbling this was not noted -daily miralax for constipation -resuming Tizanadine (rx) No spasticity noted on exam PT;Although patient denied falls in initial history, at time of PT/OT eval she reported multiple falls (and commented she did not want to realize her decline during the intial history) PTeval noted overall strength, balance,and functional mobility deficit and recommends outpatient PT for balance, stength, gait deficit and FWW for ambulation (or at least w/ assist) OT recommends Bedside commode, Grab bars, bed rail (DC planner intern gave patient local resources due to fall risk and history of falls She will need referral from PCP (3) Volume depletion mild/ BUN/Cr 23/0.9 improved to 20/0.8 with hydration overnight (4) Gastroesophageal reflux disease continues PPI Rx for Rx strength on d/c as she had runout (5) Depression and anxiety Emotionally labile in conversation Resumed 37.5 Venlafaxine daily, instructed she may increase dose q 4-7 days to MaX 225 Whe notes full dose in past before lost PCP managed depression anxiety very well 6) History of atrial fibrillation or supraventricular tachycardia Patient cardioverted ' and afib noted in EMR here but patient does not know if it was afib or SVT/PSVT home dose of metoprolol was 50 mg bid Her BP and HR during admit only allowed 25 mg bid, so was advised to take 25 mg bid If taking 50 mg twice daily 7) Optic neuritis continues the previously prescribed pred Forte drops Follow up with the ophthamologist follow up with previously scheduled orthopedic surgeon for your hand injury contact Dr Davis for follow up until you choose a different PCP - ALLERGIES Allergies/Adverse Reactions: Allergies Allergy/AdvReac Type Severity Reaction Status Date / Time amoxicillin [Amoxicillin] Allergy Rash Verified 12/26/19 13:52 ciprofloxacin [From Cipro] Allergy unknown Verified 12/26/19 13:52 ciprofloxacin HCl * Allergy unknown Verified 12/26/19 13:52 [From Cipro] meperidine HCl * AdvReac Severe Rash Verified 12/26/19 13:52 [From Demerol] - MEDICATIONS Home Medications: Ambulatory Orders Medication Instructions Recorded Confirmed Omeprazole 40 mg PO DAILY 12/24/14 04/16/17 prednisoLONE 1% OPHTH DROPS [Pred 1 drops RIGHTEYE BID 12/26/19 12/26/19 Forte 1% Ophth Drops] Acetaminophen [Tylenol] 650 mg PO Q4HR PRN tablet 12/28/19 Gabapentin 600 mg PO TID #0 12/28/19 12/27/19 Metoprolol Tartrate [Lopressor] 25 mg PO BID tablet 12/28/19 Metoprolol Tartrate [Lopressor] 25 mg PO BID #0 12/28/19 12/26/19 Omeprazole 40 mg PO DAILY #30 capsule. 12/28/19 Oxybutynin [Ditropan] 5 mg PO BID #60 tab 12/28/19 Tizanidine HCl [Zanaflex] 2 mg PO TID #90 cap 12/28/19 Venlafaxine [Effexor] 75 tab ORAL DAILY #30 tab 12/28/19 polyethylene glycoL 3350 [Miralax] 17 gm PO DAILY PRN packet 12/28/19 predniSONE [Prednisone] 20 mg PO DAILY #11 tablet 12/28/19 - PHYSICAL EXAM AT DISCHARGE General Appearance: positive: No acute distress, Alert, Anxious, Other (emot ionally labile) Eyes Bilateral: positive: PERRL, EOMI, Other (no wincing or evident photophobia today) Respiratory: positive: Chest non-tender, No respiratory distress, Breath sounds nml Cardiovascular: positive: Regular rate & rhythm, No murmur (no irregular rate, HR 50's to 70's, SBP low 100's) Abdomen: positive: Nml bowel sounds, No distention, Tenderness Skin: positive: Warm, Dry, Other ( Bandage volar aspect L wrist) Extremities: positive: Other (Right wrist dressing intact, weak 3/5 hand tester armature or fields on R, uses left hand to sign papers w/o difficulty, no spasticity noted) Neurologic/Psychiatric: positive: Oriented x3, Other (doing cross word puzzle, at bedside, LE strength 5/5, UE 5/5 R, handgrip L 3/5) - LABS Result Diagrams: 12/26/19 14:40 12/28/19 07:00 - DIAGNOSTIC IMAGING Diagnostic Imaging Results: Final report reviewed, Other (discussed with Dr Stanton (neurology)) Diagnostic Imaging Results Comments: Chest X ray 12/26/19 Mild hyperinflation c/w COPD, No acute cardiopulmonary diseae, Old 8th rib fracture T spine MRI ; 12/27 Enhancing T2 hyperintense lesion in R posterolateral cord at T 9 level, c/w w actively demyelinating MS lesion C spine MRI 12/27 No cervical cord signal abnormality or abnormal cord enhancement. no demyelilnating disease in C spine Brain MRI 12/26; Diffuse white matter signal changes likely r/t patients known demyelination disorder, No definite associated enhancement identified - TIME SPENT Time Spent in Discharge (Minutes): 45 (discussed case w/ outpatient neurologist, patient, PT, OT)
== END 2019-12-28 15:30 | disposition home or self-care (01) | DRG 59 ==
LOC: ED 13:36 → MS2 15:37
PROVIDERS: ADMIT Nurse Practitioner; ATTEND Nurse Practitioner
DX: G35 Multiple sclerosis (principal); H46.9 Unspecified optic neuritis; E86.9 Volume depletion, unspecified; I48.91 Unspecified atrial fibrillation; I10 Essential (primary) hypertension; F17.210 Nicotine dependence, cigarettes, uncomplicated; K21.9 Gastro-esophageal reflux disease without esophagitis; G89.29 Other chronic pain; M54.9 Dorsalgia, unspecified; F17.200 Nicotine dependence, unspecified, uncomplicated; R32 Unspecified urinary incontinence; K59.00 Constipation, unspecified; F32.9 Major depressive disorder, single episode, unspecified; Z72.89 Other problems related to lifestyle; F41.9 Anxiety disorder, unspecified; R53.83 Other fatigue; H91.90 Unspecified hearing loss, unspecified ear; T50.996A Underdosing of other drugs, medicaments and biological substances, initial encounter; Z91.120 Patient's intentional underdosing of medication regimen due to financial hardship; Y92.009 Unspecified place in unspecified non-institutional (private) residence as the place of occurrence of the external cause; Z79.52 Long term (current) use of systemic steroids; Z79.899 Other long term (current) drug therapy; Z91.81 History of falling
CPT/HCPCS: 36415; 70553; 71045; 72156; 72157; 80048; 80053; 81003; 81025; 83690; 84484; 85025; 93005; 97161; 97165; 99281; 99285; A9270; A9585; J1650; 81001; 87086

== ENCOUNTER 2020-03-14 12:13 | Outpatient (CLI) | payer MEDICARE | END 2020-03-14 12:14 | disposition home or self-care (01) | LOC: COV 12:13 | PROVIDERS: ATTEND Family Medicine | DX: R50.9 Fever, unspecified (principal); R05 Cough; Z20.828 Contact with and (suspected) exposure to other viral communicable diseases ==

== ENCOUNTER 2020-08-16 11:31 | Outpatient (CLI) | payer MEDICARE ==
[2020-08-16 15:55] LABS: BASOPHILS # (AUTO) 0.1 10^3/uL (0.0-0.1); BASOPHILS % (AUTO) 1.7 %; EOSINOPHILS # (AUTO) 0.1 10^3/uL (0.0-0.7); EOSINOPHILS % (AUTO) 1.5 %; HCT - HEMATOCRIT 41.8 % (37.0-47.0); HGB - HEMOGLOBIN 14.3 g/dL (12.0-16.0); LYMPHOCYTES # (AUTO) 1.3 10^3/uL (1.5-3.5); LYMPHOCYTES % (AUTO) 23.3 %; MEAN CORPUSCULAR HEMOGLOBIN 33.6 pg (27.0-31.0); MEAN CORPUSCULAR HGB CONC 34.2 g/dL (32.0-36.0); MEAN CORPUSCULAR VOLUME 98.1 fL (81.0-99.0); MEAN PLATELET VOLUME 10.3 fL (7.9-10.8); MONOCYTES # (AUTO) 0.6 10^3/uL (0.0-1.0); MONOCYTES % (AUTO) 10.9 %; NEUTROPHILS # (AUTO) 3.4 10^3/uL (1.5-6.6); NEUTROPHILS % (AUTO) 62.2 %; PLT - PLATELET COUNT 326 10^3/uL (130-450); RED BLOOD COUNT 4.26 10^6/uL (4.20-5.40); RED CELL DISTRIBUTION WIDTH 13.3 % (12.0-15.0); WHITE BLOOD COUNT 5.4 x10^3/uL (4.8-10.8)
[2020-08-16 16:24] LABS: ALBUMIN 4.3 g/dL (3.2-5.5); ALBUMIN/GLOBULIN RATIO 1.5 (1.0-2.2); ALKALINE PHOSPHATASE 92 IU/L (42-121); ALT ALANINE AMINOTRANSFERASE 18 IU/L (10-60); AST ASPARTATE AMINOTRANSFERASE 18 IU/L (10-42); BILIRUBIN,TOTAL 0.7 mg/dL (0.2-1.0); BUN - BLOOD UREA NITROGEN 18 mg/dL (6-20); CALCIUM 9.4 mg/dL (8.5-10.3); CARBON DIOXIDE - CO2 26 mmol/L (21-32); CHLORIDE 104 mmol/L (101-111); CHOL/HDL RATIO 4.2 (<4.4); CHOLESTEROL 259 mg/dL; CREATININE 0.6 mg/dL (0.4-1.0); GFR - MDRD 104 (>89); GLUCOSE 97 mg/dL (70-100); HDL CHOLESTEROL 61 mg/dL; LDL CHOLESTEROL,CALCULATED 174 mg/dL; LDL/HDL RATIO 2.9 (<4.4); POTASSIUM 4.5 mmol/L (3.5-5.0); SODIUM 139 mmol/L (135-145); TOTAL PROTEIN 7.1 g/dL (6.7-8.2); TRIGLYCERIDES 121 mg/dL; VLDL CHOLESTEROL 24 mg/dL
== END 2020-08-16 11:32 | disposition home or self-care (01) ==
LOC: LAB.S 11:31
PROVIDERS: ATTEND Internal Medicine
DX: I10 Essential (primary) hypertension (principal); G35 Multiple sclerosis; E53.8 Deficiency of other specified B group vitamins
CPT/HCPCS: 36415; 80053; 80061; 82306; 83721; 83921; 85025

== ENCOUNTER 2020-10-05 12:26 | Outpatient (CLI) | payer MEDICARE | END 2020-10-05 12:27 | disposition home or self-care (01) | LOC: COV 12:26 | PROVIDERS: ATTEND Internal Medicine Cardiovascular Disease | DX: Z01.812 Encounter for preprocedural laboratory examination (principal); R00.2 Palpitations; Z20.822 Contact with and (suspected) exposure to COVID-19 ==

== ENCOUNTER 2020-10-14 19:26 | Emergency (ER) | payer MEDICARE ==
--- NOTE | 2020-10-14 20:31 | ED Physician Documentation ---
History of Present Illness - Stated complaint Stated Complaint: FALL, RT WRIST INJURY - Chief complaint Chief Complaint: Trauma Ext - Additonal information Additional information: 55-year-old female presents Ointment with right wrist pain angulation and deformity after a fall in the shower. No loss of consciousness did not strike her head. She is not anticoagulated. Unfortunately she does have a history of ulnar nerve damage to this right wrist and hand after sustaining a laceration in December 2019 she did see a hand surgeon for repair of the nerve but it was not entirely successful. Patient is left-hand dominant Review of Systems Constitutional: denies: Fever, Chills Nose: reports: Reviewed and negative Throat: reports: Reviewed and negative Cardiac: reports: Reviewed and negative Respiratory: reports: Reviewed and negative GI: reports: Reviewed and negative : reports: Reviewed and negative Skin: reports: Reviewed and negative Musculoskeletal: reports: Extremity pain (right wrist) PD PAST MEDICAL HISTORY - Past Medical History Past Medical History: Yes Cardiovascular: Hypertension, Atrial fibrillation, Arrhythmia, Other Respiratory: None Neuro: Migraines, Multiple sclerosis Endocrine/Autoimmune: None GI: GERD MASTER DATA ANALYST: None : Incontinence, Other HEENT: Chronic hearing loss Psych: Depression, Anxiety Musculoskeletal: Fatigue, Chronic back pain, Other Derm: Other - Past Surgical History Past Surgical History: Yes General: Colonoscopy, EGD /MASTER DATA ANALYST: Endometrial ablation, Tubal ligation Cardiovascular: Other HEENT: Rhinoplasty, Tonsil/Adenoidectomy - Present Medications Home Medications: Ambulatory Orders Medication Instructions Recorded Confirmed Omeprazole 40 mg PO DAILY 12/24/14 10/14/20 Acetaminophen [Tylenol] 650 mg PO Q4HR PRN tablet 12/28/19 10/14/20 Gabapentin 600 mg PO TID #0 12/28/19 10/14/20 Metoprolol Tartrate [Lopressor] 25 mg PO BID tablet 12/28/19 Omeprazole 40 mg PO DAILY #30 capsule. 12/28/19 10/14/20 Oxybutynin [Ditropan] 5 mg PO BID #60 tab 12/28/19 10/14/20 Tizanidine HCl [Zanaflex] 2 mg PO TID #90 cap 12/28/19 10/14/20 Venlafaxine [Effexor] 75 tab ORAL DAILY #30 tab 12/28/19 10/14/20 Metoprolol Tartrate [Lopressor] 50 mg PO BID 10/14/20 10/14/20 oxyCODONE [Roxicodone] 5 mg PO TID PRN #20 tablet 10/14/20 - Allergies Allergies/Adverse Reactions: Allergies Allergy/AdvReac Type Severity Reaction Status Date / Time amoxicillin [Amoxicillin] Allergy Rash Verified 10/14/20 19:56 ciprofloxacin [From Cipro] Allergy unknown Verified 10/14/20 19:56 ciprofloxacin HCl * Allergy unknown Verified 10/14/20 19:56 [From Cipro] meperidine HCl * AdvReac Severe Rash Verified 10/14/20 19:56 [From Demerol] - Social History Does the pt smoke?: Yes Smoking Status: Current every day smoker Does the pt drink ETOH?: Yes ETOH Use: Wine Does the pt have substance abuse?: Yes Substance Use and Type: CBD oil / Products - Immunizations Immunizations are current?: Yes Immunizations: TDAP >10years/unknown - POLST Patient has POLST: No PD ED PE EXPANDED - Extremities Extremities: Right wrist (Right wrist angulated and deformed at the distal radius. 2+ distal pulse. Brisk cap refill there are baseline paresthesias to the second third and fourth digits movement is preserved.) Results - Vitals Vitals: Vital Signs - 24 hr 10/14/20 10/14/20 10/14/20 19:51 21:41 21:43 Temperature 36.3 C L Heart Rate 76 85 101 H Respiratory 16 15 17 Rate Blood Pressure 122/89 H 150/113 H 145/82 H O2 Saturation 97 98 95 10/14/20 22:00 Temperature Heart Rate 95 Respiratory 21 Rate Blood Pressure 135/85 H O2 Saturation 92 Oxygen O2 Source Room air - Rads (name of study) right wrist Radiology: Final report received (Fully comminuted and impacted fracture of the distal radius with articular extension and mild dorsal angulation. Mildly displaced ulnar styloid fracture) right wrist post reduction Radiology: Final report received (Lightly improved alignment status post closed reduction of comminuted distal radius fracture. Mildly displaced ulnar styloid fracture redemonstrated) Procedures - Splint (location) right arm Splint applied by: Tech Type of splint: Fiberglass, Sugar tong Other: Patient tolerated well, No complications, Neurovascular intact, Sling provided - Reduction Body part reduced: Right, Wrist Fracture or dislocation: Fracture dislocation Anesthesia: Conscious sedation Reduction aftercare: NV intact, Alignment improved, Splint applied, Sling PD MEDICAL DECISION MAKING - ED course Complexity details: reviewed results, re-evaluated patient, d/w patient, d/w family ED course: 55-year-old female presents the emergency department for evaluation of acute right arm pain after she slipped and fell in the shower this evening. She unfortunately sustained both distal radial and ulnar styloid fracture. The Radial fracture and did require reduction which was done at the bedside with Dr. Wander Ponce ordering conscious sedation. The reduction was only partially successful. Patient was placed in a Sugar tong splint and given a sling. She will be referred to orthopedics for follow-up. Emergent return precautions were discussed I am prescribing a short course of short-acting opioid pain medication for this patient. I have reviewed the patients GEOPHYSICAL LABORATORY SUPERVISOR and no concerning findings were noted. I have discussed that the opioids are for short term therapy only, and will not be refilled from the ED. Departure - Departure Disposition: 01 Home, Self Care Clinical Impression: Radius fracture Qualifiers: Encounter type: initial encounter Radius location: distal Fracture type: closed Fracture morphology: unspecified fracture morphology Laterality: right Qualified Code(s): S52.501A - Unspecified fracture of the lower end of right radius, initial encounter for closed fracture Fracture of ulnar styloid Qualifiers: Encounter type: initial encounter Fracture type: closed Fracture alignment: nondisplaced Laterality: right Qualified Code(s): S52.614A - Nondisplaced fracture of right ulna styloid process, initial encounter for closed fracture Condition: Stable Record reviewed to determine appropriate education?: Yes Instructions: ED Fx Forearm Radius Ulna Redu Requ Follow-Up: Kd Calvo MD [Provider Admit Priv/Credential] - Prescriptions: oxyCODONE [Roxicodone] 5 mg PO TID PRN #20 tablet PRN Reason: Pain Comments: Lina unfortunately you he fractured both your radius and your ulna in your right arm. We did do a fairly modest reduction of this fracture at the bedside however it is likely that an orthopedic surgeon may need to take you to the OR to formally repair this. Please have your primary care office make the referral to Dr. Wilcox's office tomorrow. I am prescribing a short course of narcotic pain medication for you. These are potentially dangerous and addictive medications that should be used carefully. These medications may constipate you. Take an yrbe-oan-nrlrgli stool softener (docusate) twice daily with plenty of water while taking these medications. If you go 24 hours without a bowel movement, take lhti-clk-[id number] miralax, per package instructions. Do not drink or drive while taking these medications. If you received narcotic or sedating medications while in the emergency department, do not drive for 24 hours. Store this medication in a safe, secure place and out of reach of children. It is a violation of federal law to give or sell this medication to another person or to use in a manner other than prescribed. The ED will not refill narcotic prescriptions, including prescriptions lost or stolen. To dispose of unwanted medications: 1. [facility] at [address] [facility] [address] [facility] in [place] has a medication drop box. They accept prescription medications (in pill form) Wednesday through Wednesday 9:00 a.m. to 5:00 p.m. 2. The [facility] accepts prescription medications (in pill form only) for disposal year round. Call for more information. 3. Contact the [facility] for the next [facility] sponsored prescription drug collection event. , [phone], or [phone]; Note that many narcotic pain relievers also contain Tylenol/acetaminophen. Please ensure that your total dose of acetaminophen from all sources does not exceed 3 g (3000 mg) per day. Return to the emergency department if you develop fevers, have cool or discolored fingers or worsening pain.
[2020-10-14] MEDS ORDERED: ONDANSETRON 4 MG/2 ML VIAL IVP STA (20:46)
[2020-10-14] MEDS ORDERED: HYDROmorphone 1 MG/ML CARPUJECT IVP STA ×2 (20:46→21:22)
[2020-10-14] MEDS ORDERED: PROPOFOL 200 MG/20 ML VIAL IVP STA (20:47)
--- OUTSIDE RECORDS SUMMARY | 2020-10-14 20:52 | EXTERNAL MEDICAL SUMMARY RPT | Continuity of Care Document ---
:1965 Demographics Phone Unavailable Preferred Language Unknown Marital Status Unknown Sabianist Affiliation Unknown Race Unknown Ethnic Group Unknown Author Organization [facility] Address [address] [place] [address] Phone Allergies Encounters Medications Problems Results
--- NOTE | 2020-10-14 21:31 | XRAY Report ---
PROCEDURE: Wrist 3 View RT INDICATIONS: pain, deformity after fall TECHNIQUE: 3 views of the wrist were acquired. COMPARISON: None. FINDINGS: Bones: There is a mildly comminuted transverse fracture in the distal radius extending to the distal radioulnar and radiocarpal joints. There is associated mild dorsal angulation and impaction. Mildly d isplaced ulnar styloid fracture is also demonstrated. Visualized osseous structures appear osteopenic . Soft tissues: No suspicious soft tissue calcifications. IMPRESSION: 1. Mildly comminuted and impacted fracture of the distal radius with articular extension and mild colleen celine angulation. 2. Mildly displaced ulnar styloid fracture. Reviewed by: Sahil Barry MD on 10/14/2020 9:30 PM PDT Approved by: Sahil Barry MD on 10/14/2020 9:30 PM PDT Station ID: [id number]
--- NOTE | 2020-10-14 21:45 | ED Physician Documentation ---
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 : Incontinence, Other HEENT: Chronic hearing loss Psych: Depression, Anxiety Musculoskeletal: Fatigue, Chronic back pain, Other Derm: Other - Past Surgical History Past Surgical History: Yes General: Colonoscopy, EGD /PARTICLE BOARD SUPERVISOR: Endometrial ablation, Tubal ligation Cardiovascular: Other HEENT: Rhinoplasty, Tonsil/Adenoidectomy - Present Medications Home Medications: Ambulatory Orders Medication Instructions Recorded Confirmed Omeprazole 40 mg PO DAILY 12/24/14 10/14/20 Acetaminophen [Tylenol] 650 mg PO Q4HR PRN tablet 12/28/19 10/14/20 Gabapentin 600 mg PO TID #0 12/28/19 10/14/20 Metoprolol Tartrate [Lopressor] 25 mg PO BID tablet 12/28/19 Omeprazole 40 mg PO DAILY #30 capsule. 12/28/19 10/14/20 Oxybutynin [Ditropan] 5 mg PO BID #60 tab 12/28/19 10/14/20 Tizanidine HCl [Zanaflex] 2 mg PO TID #90 cap 12/28/19 10/14/20 Venlafaxine [Effexor] 75 tab ORAL DAILY #30 tab 12/28/19 10/14/20 Metoprolol Tartrate [Lopressor] 50 mg PO BID 10/14/20 10/14/20 - Allergies Allergies/Adverse Reactions: Allergies Allergy/AdvReac Type Severity Reaction Status Date / Time amoxicillin [Amoxicillin] Allergy Rash Verified 10/14/20 19:56 ciprofloxacin [From Cipro] Allergy unknown Verified 10/14/20 19:56 ciprofloxacin HCl * Allergy unknown Verified 10/14/20 19:56 [From Cipro] meperidine HCl * AdvReac Severe Rash Verified 10/14/20 19:56 [From Demerol] - Social History Does the pt smoke?: Yes Smoking Status: Current every day smoker Does the pt drink ETOH?: Yes ETOH Use: Wine Does the pt have substance abuse?: Yes Substance Use and Type: CBD oil / Products - Immunizations Immunizations are current?: Yes Immunizations: TDAP >10years/unknown - POLST Patient has POLST: No Results - Vitals Vitals: Vital Signs - 24 hr 10/14/20 19:51 Temperature 36.3 C L Heart Rate 76 Respiratory 16 Rate Blood Pressure 122/89 H O2 Saturation 97 Oxygen O2 Source Room air Procedures - Procedural sedation Sedation prep: Informed consent, Time out completed, PE performed, ASA 1 - healthy, IV O2 monitor, ET CO2 monitor, RT present Sedation medications: dilaudid, zofran, propofol Patient status during sedation: Responds to tactile, Vitals remained stable, Maintained airway, Recovered uneventfully Sedation recovery: Recovered uneventfully, Back to baseline PD MEDICAL DECISION MAKING - ED course Complexity details: reviewed results, re-evaluated patient, considered differential, d/w patient, d/w family ED course: 55-year-old female had a fall in the shower has fractured her right wrist. I became involved in the case to assist nurse practitioner Erick with reduction and conscious sedation. I provided conscious sedation with use of propofol. The patient required 100 mg she had excellent anesthesia for the procedure and recovered uneventfully. She had been given Dilaudid shortly before the procedure. The fracture was reduced and placed into a splint post reduction films indicate further reduction will be required and the patient is referred to orthopedics.
--- NOTE | 2020-10-14 22:00 | XRAY Report ---
PROCEDURE: Wrist 2 View RT INDICATIONS: reduction TECHNIQUE: 2 views of the wrist were acquired. COMPARISON: 10/14/2020. FINDINGS: Bones: There is slightly improved alignment status post closed reduction of the presented identified comminuted distal radius fracture. There is slightly decreased dorsal angulation. However, there is s lightly increased radius sided angulation. There is decreased impaction. Fracture extension to the di stal radioulnar and radiocarpal joints redemonstrated. A mildly displaced ulnar styloid fracture is a lso redemonstrated. Soft tissues: There is a new external cast which limits evaluation of soft tissue and fine bony detai l. IMPRESSION: 1. Slightly improved alignment status post closed reduction of comminuted distal radius fracture. 2. Mildly displaced ulnar styloid fracture redemonstrated. Reviewed by: Sahil Barry MD on 10/14/2020 9:58 PM PDT Approved by: Sahil Barry MD on 10/14/2020 9:58 PM PDT Station ID: [id number]
[2020-10-14 22:12] VITALS: BP 135/85
[2020-10-14] MEDS ORDERED: oxyCODONE/ACET 5/325 Prepack 4 PO STA (22:33)
== END 2020-10-14 22:47 | disposition home or self-care (01) ==
LOC: ED 19:26
DX: S52.501A Unspecified fracture of the lower end of right radius, initial encounter for closed fracture (principal); S52.611A Displaced fracture of right ulna styloid process, initial encounter for closed fracture; W18.30XA Fall on same level, unspecified, initial encounter; Y93.E1 Activity, personal bathing and showering; Y92.002 Bathroom of unspecified non-institutional (private) residence as the place of occurrence of the external cause; F17.200 Nicotine dependence, unspecified, uncomplicated
CPT/HCPCS: 25605; 73100; 73110; 96374; 96375; 96376; 99281; 99283; J1170

== ENCOUNTER 2020-10-17 11:03 | Outpatient (CLI) | payer MEDICARE | END 2020-10-17 23:59 | disposition home or self-care (01) | LOC: DI.N 11:03 | PROVIDERS: ATTEND Orthopaedic Surgery | DX: Z01.818 Encounter for other preprocedural examination (principal); Z20.822 Contact with and (suspected) exposure to COVID-19 ==

== ENCOUNTER 2020-10-21 09:34 | Day surgery (SDC) | payer MEDICARE ==
[2020-10-21] MEDS ORDERED: ACETAMINOPHEN 1,000 MG/100 ML 100 ML IV ONE (11:56)
[2020-10-21] MEDS ORDERED: ceFAZolin 2 GM/50 ML 2 GM/50 ML BAG IV ONE (11:56)
[2020-10-21] MEDS ORDERED: CELECOXIB 100 MG CAPSULE PO ONE (11:56)
[2020-10-21] MEDS ORDERED: LACTATED RINGERS 1,000 ML IV ONE (11:59)
[2020-10-21 12:10] VITALS: BP 157/98
--- NOTE | 2020-10-21 12:46 | ANESTHESIA ---
Pre-Anesthesia VS, & Labs - Diagnosis right distal radial fracture - Procedure closed reduction and percutaneous pinning of right radial fracture Vital Signs: Temp Pulse Resp BP Pulse Ox 36.2 C L 71 16 157/98 H 100 10/21/20 12:07 10/21/20 12:07 10/21/20 12:07 10/21/20 12:07 10/21/20 12:07 Height: 5 ft 5 in Weight (kg): 64 kg Body Mass Index: 23.4 BMI Classification: Healthy weight - NPO >8 hours Last Fluid Intake: 0700 - Is Patient ?: No Home Medications and Allergies Home Medications: Ambulatory Orders Dimethyl Fumarate [Tecfidera] 240 mg PO BID 10/21/20 Metoprolol Tartrate [Lopressor] 50 mg PO BID 10/14/20 Dimethyl Fumarate [Tecfidera] 240 mg PO BID 10/21/20 Allergies/Adverse Reactions: Allergies Allergy/AdvReac Type Severity Reaction Status Date / Time amoxicillin [Amoxicillin] Allergy Rash Verified 10/14/20 19:56 ciprofloxacin [From Cipro] Allergy unknown Verified 10/14/20 19:56 ciprofloxacin HCl * Allergy unknown Verified 10/14/20 19:56 [From Cipro] meperidine HCl * AdvReac Severe Rash Verified 10/14/20 19:56 [From Demerol] Anes History & Medical History - Anesthetic History Anesthesia Complications: reports: No previous complications - Medical History Cardiovascular: reports: Hypertension, Atrial fibrillation, Arrhythmia Pulmonary: reports: None Gastrointestinal: reports: GERD Urinary: reports: Incontinence, Other Neuro: reports: Migraines, Multiple sclerosis Musculoskeletal: reports: Fatigue, Chronic back pain Endocrine/Autoimmune: reports: None Blood Disorders: reports: None Skin: reports: Other Smoking Status: Current every day smoker (1/4 pack per day) Psychosocial: reports: Depression, Alcohol History of Cancer?: No - Surgical History General: reports: Colonoscopy, EGD Eyes Ears Nose Throat (EENT): reports: Rhinoplasty, Tonsil/Adenoidectomy Cardiothoracic: reports: Other Gynecologic: reports: Endometrial ablation, Tubal ligation Exam General: Alert, Oriented x3, Cooperative, No acute distress Dental: WNL Mouth Openin Fingerbreadth Neck Mobility: Normal Mallampati classification: III Thyromental Distance: 4-6 cm Mental/Cognitive Status: Alert/Oriented X3, Normal for patient Plan Anesthesia Type: General, Supraclavicular Block Regional Block: Per Surgeon's request for Post Op pain control Consent for Procedure(s) Verified and Reviewed: Yes Code Status: Attempt Resuscitation ASA classification: 2-Mild systemic disease Is this case an emergency?: No
[2020-10-21] MEDS ORDERED: fentaNYL 100 MCG/2 ML VIAL ONE ×2 (12:58→13:18)
[2020-10-21] MEDS ORDERED: PROPOFOL 200 MG/20 ML VIAL IVP ONE (13:17)
[2020-10-21] MEDS ORDERED: ROPIVACAINE 0.5% PF 20 ML AMPULE ONE (13:17)
[2020-10-21] MEDS ORDERED: MIDAZOLAM 2 MG/2 ML VIAL ONE (13:18)
[2020-10-21] MEDS ORDERED: DEXAMETHASONE 4 MG/ML VIAL ONE (13:18)
[2020-10-21] MEDS ORDERED: HYDROmorphone 0.5 MG/0.5 ML SYRINGE IVP PRN ×2 (13:50→14:07)
[2020-10-21] MEDS ORDERED: NALOXONE 0.4 MG/ML VIAL IVP PRN (13:50)
[2020-10-21] MEDS ORDERED: ATROPINE ABBOJECT 1 MG/10 ML SYRINGE IVP PRN (13:50)
[2020-10-21] MEDS ORDERED: ONDANSETRON 4 MG/2 ML VIAL IVP PRN (13:50)
[2020-10-21] MEDS ORDERED: fentaNYL 100 MCG/2 ML VIAL IVP PRN (13:50)
[2020-10-21] MEDS ORDERED: MORPHINE 2 MG/ML CARPUJECT IVP PRN (13:50)
[2020-10-21] MEDS ORDERED: LACTATED RINGERS 1,000 ML IV SCH (14:00)
== END 2020-10-21 09:35 | disposition home or self-care (01) ==
LOC: SDS 09:34
PROVIDERS: ATTEND Orthopaedic Surgery
DX: S52.501A Unspecified fracture of the lower end of right radius, initial encounter for closed fracture (principal); M79.601 Pain in right arm; Z53.8 Procedure and treatment not carried out for other reasons
CPT/HCPCS: A9270; J0131; J0690; J1170; J7120

== ENCOUNTER 2020-10-23 08:28 | Day surgery (SDC) | payer MEDICARE ==
[~2020-10-23 08:28] MED LIST: ACETAMINOPHEN 1,000 MG/100 ML 100 ML IV ONE; CELECOXIB 100 MG CAPSULE PO ONE; LIDOCAINE-MPF 2% 5 ML VIAL ONE; MIDAZOLAM 2 MG/2 ML VIAL ONE; PROPOFOL 200 MG/20 ML VIAL IVP ONE; ceFAZolin 2 GM/50 ML 2 GM/50 ML BAG IV ONE
[2020-10-23] MEDS ORDERED: LACTATED RINGERS 1,000 ML IV ONE ×2 (08:33→11:00)
[2020-10-23] MEDS ORDERED: MIDAZOLAM 2 MG/2 ML VIAL ONE (09:11)
[2020-10-23] MEDS ORDERED: fentaNYL 100 MCG/2 ML VIAL ONE (09:12)
[2020-10-23] MEDS ORDERED: LIDOCAINE-MPF 2% 5 ML VIAL ONE (09:12)
[2020-10-23] MEDS ORDERED: ROPIVACAINE 0.5% PF 20 ML AMPULE ONE (09:12)
[2020-10-23] MEDS ORDERED: BUPIVACAINE 0.5% PF 30 ML VIAL ONE (09:12)
[2020-10-23] MEDS ORDERED: PROPOFOL 200 MG/20 ML VIAL IVP ONE (09:48)
--- NOTE | 2020-10-23 10:51 | OPERATIVE REPORT ---
Operative Report - General Procedure Date: 10/23/20 Planned Procedure: Closed reduction right distal radius with percutaneous K wire fixation Pre-Op Diagnosis: Closed, displaced distal radius fracture right wrist Procedure Performed: Closed reduction right distal radius with percutaneous K wire fixation; total of 4 K wires, 0.062 inch Post Op Diagnosis: Same as preoperative diagnosis - Procedure Note Primary Surgeon: Kd Calvo MD Secondary Surgeon: Frandy REESE Anesthesia Provider: Clara Mullen CRNA Anesthesia Technique: Moderate sedation, Regional block Estimated Blood Loss (mL): 1 Indications: This is a 55-year-old relatively active woman with history of fall from standing height, landing on her outstretched right hand and sustained a closed displaced distal radius fracture of the right wrist confirmed by clinical exam and routine radiographs. The fracture was angulated, shortened and comminuted.The fracture was mostly extra-articular Findings: The fracture aligned satisfactorily with manual longitudinal fingertrap traction and direct manipulation at the fracture site. There is some metaphyseal dorsal impaction but overall alignment was considerably improved and satisfactory Complications: None - Other Other Information/Narrative: The patient was brought to the operating room and placed in a supine position with the right arm over an arm extension table. After satisfactory anesthesia was achieved, the right upper extremity was prepped and draped in a sterile manner in the usual fashion. The C arm image intensifier was utilized and a sterile drape was applied. A timeout procedure was performed and all were in agreement. 5 finger fingertrap traction with a traction bow was utilized to apply traction over a sterile bump that placed the wrist in some palmar flexion. Longitudinal traction and direct manipulation at fracture site was performed. The C-arm image intensifier was used to verify satisfactory alignment before K wire insertion. 0.62 inch K wires were utilized and inserted with the mini local intermodal truck driver beginning over the bare area of the radial styloid; these K wires were driven proximally and toward the ulnar side to achieve bicortical fixation. A third K wire was inserted from the radial side more proximal and was aimed toward the ulnar cortex in a more horizontal fashion, close to the articular surface. The last K wire was inserted from the ulnar aspect of the distal radial metaphysis and position to the opposite radial cortex. The alignment of the pins and fracture alignment was felt to be satisfactory and confirmed with the C-arm image intensifier and clinical examination. The K wires were cut external to the skin and capped with sterile plastic balls. Gauze pin protectors were place d around the K wires and a well-padded short arm volar fiberglass splint was applied. She tolerated the procedure well, no clinical deformity to right wrist. A physician assistant construction superintendent was utilized to facilitate traction and splint application.
[2020-10-23] MEDS ORDERED: oxyCODONE 5 MG TABLET PO PRN ×2 (11:04→11:13)
[2020-10-23] MEDS ORDERED: KETOROLAC 15 MG/ML VIAL IVP STA (11:04)
[2020-10-23] MEDS ORDERED: oxyCODONE 5 MG TABLET ONE (11:15)
[2020-10-23 11:19] VITALS: BP 125/93
--- NOTE | 2020-10-23 11:32 | XRAY Report ---
PROCEDURE: OR C-Arm Procedure INDICATIONS: right wrist fx TECHNIQUE: 2 views of the right wrist were obtained. COMPARISON: X-ray wrist 10/14/2020 FINDINGS: Intraoperative fluoroscopic images demonstrate fixation of the distal radial fracture. There is relat ively good anatomic alignment with slight posterior offset appearance noted. Hardware is intact. IMPRESSION: Intraoperative distal radial fixation. Reviewed by: Alma Delia Vale MD on 10/23/2020 11:31 AM PDT Approved by: Alma Delia Vale MD on 10/23/2020 11:31 AM PDT Station ID: [id number]
--- NOTE | 2020-10-23 13:02 | ANESTHESIA POST OP EVALUATION ---
Anesthesia Post Eval - Post Anesthesia Eval Vitals: Last Vital Signs Temp 36.3 C L 10/23/20 11:19 Pulse 70 10/23/20 11:19 Resp 16 10/23/20 11:19 BP 125/93 H 10/23/20 11:19 Pulse Ox 94 10/23/20 11:19 CV Function Including HR & BP: Stable Pain Control: Satisfactory Nausea & Vomiting: Negative Mental Status: Baseline Respiratory Status: Airway Patent Hydration Status: Satisfactory Anesthesia Complications: None
== END 2020-10-23 08:29 | disposition home or self-care (01) ==
LOC: SDS 08:28
PROVIDERS: ATTEND Orthopaedic Surgery
DX: S52.531A Colles' fracture of right radius, initial encounter for closed fracture (principal); G56.11 Other lesions of median nerve, right upper limb; I48.91 Unspecified atrial fibrillation; F17.210 Nicotine dependence, cigarettes, uncomplicated
CPT/HCPCS: 25606; A9270; C1713; J0131; J0690; J7120

== ENCOUNTER 2020-12-02 11:15 | Outpatient (CLI) | payer MEDICARE ==
--- NOTE | 2020-12-02 13:03 | XRAY Report ---
PROCEDURE: Wrist 3 View RT INDICATIONS: COLLES FX OF R RADIUS TECHNIQUE: 3 views of the wrist were acquired. COMPARISON: 10/14/2020 and 10/23/2020 FINDINGS: Cast material degrades fine bony detail. External fixation pins are present in the distal radius, in unchanged configuration when compared with 10/23/2020 intraoperative fluoroscopic examinations. Alignm ent of the distal radius is similar, nearly anatomic. Small amount of bridging bony callus is formed in the interval. IMPRESSION: External fixation construct the right distal radius. No significant change in alignment from prior st udy. Small amount of bridging bony callus has formed in the interval. Reviewed by: Edinson Robins MD on 12/02/2020 1:02 PM PDT Approved by: Edinson Robins MD on 12/02/2020 1:02 PM PDT Station ID: [id number]
== END 2020-12-02 23:59 | disposition home or self-care (01) ==
LOC: DI.N 11:15
PROVIDERS: ATTEND Physician Assistant
DX: S52.531A Colles' fracture of right radius, initial encounter for closed fracture (principal)

== ENCOUNTER 2021-03-17 08:08 | Day surgery (SDC) | payer MEDICARE ==
[2021-03-17] MEDS ORDERED: LACTATED RINGERS 1,000 ML IV ONE (08:13)
--- NOTE | 2021-03-17 09:04 | ANESTHESIA ---
Pre-Anesthesia VS, & Labs - Diagnosis gerd, change in bowel habits - Procedure egd, colonoscopy Vital Signs: Temp Pulse Resp BP Pulse Ox 36.3 C L 77 16 153/112 H 99 03/17/21 08:13 03/17/21 08:13 03/17/21 08:13 03/17/21 08:13 03/17/21 08:13 Height: 5 ft 5 in Weight (kg): 58.9 kg Body Mass Index: 21.6 BMI Classification: Healthy weight - NPO >8 hours - Is Patient ?: No Home Medications and Allergies Metoprolol Tartrate [Lopressor] 50 mg PO BID 10/14/20 Dimethyl Fumarate [Tecfidera] 240 mg PO BID 10/21/20 Losartan [Cozaar] 25 mg PO DAILY 10/23/20 Allergies/Adverse Reactions: Allergies Allergy/AdvReac Type Severity Reaction Status Date / Time amoxicillin [Amoxicillin] Allergy Rash Verified 10/22/20 12:37 ciprofloxacin [From Cipro] Allergy unknown Verified 10/22/20 12:37 ciprofloxacin HCl * Allergy unknown Verified 10/22/20 12:37 [From Cipro] meperidine HCl * AdvReac Severe Rash Verified 10/22/20 12:37 [From Demerol] Anes History & Medical History - Anesthetic History Anesthesia Complications: reports: No previous complications - Medical History Cardiovascular: reports: Hypertension, Atrial fibrillation, Arrhythmia Pulmonary: reports: None Gastrointestinal: reports: GERD Urinary: reports: Incontinence, Other Neuro: reports: Migraines, Multiple sclerosis Musculoskeletal: reports: Fatigue, Chronic back pain Endocrine/Autoimmune: reports: None Blood Disorders: reports: None Skin: reports: Other Smoking Status: Current every day smoker (1/4 pack per day) History of Cancer?: No - Surgical History General: reports: Colonoscopy, EGD Eyes Ears Nose Throat (EENT): reports: Rhinoplasty, Tonsil/Adenoidectomy Cardiothoracic: reports: Other Gynecologic: reports: Endometrial ablation, Tubal ligation Exam General: Alert Dental: WNL Mallampati classification: I Thyromental Distance: greater than 6 cm Respiratory: Lungs clear Cardiovascular: Regular rate, Normal S1, Normal S2 Plan Anesthesia Type: Total IV Consent for Procedure(s) Verified and Reviewed: Yes Code Status: Attempt Resuscitation ASA classification: 2-Mild systemic disease Is this case an emergency?: No
[2021-03-17] MEDS ORDERED: PROPOFOL 500 MG/50 ML 500 MG/50 ML VIAL ONE (09:05)
[2021-03-17] MEDS ORDERED: LIDOCAINE-MPF 2% 5 ML VIAL ONE (09:05)
[2021-03-17] MEDS ORDERED: MIDAZOLAM 2 MG/2 ML VIAL ONE (09:06)
[2021-03-17] MEDS ORDERED: PROPOFOL 200 MG/20 ML VIAL IVP ONE (09:56)
[2021-03-17] MEDS ORDERED: LACTATED RINGERS 300 ML IV ONE (10:00)
[2021-03-17 10:26] VITALS: BP 133/99
--- NOTE | 2021-03-17 10:26 | ANESTHESIA POST OP EVALUATION ---
Anesthesia Post Eval - Post Anesthesia Eval Vitals: Last Vital Signs Temp 36.3 C L 03/17/21 10:00 Pulse 66 03/17/21 10:05 Resp 16 03/17/21 10:05 BP 114/88 H 03/17/21 10:05 Pulse Ox 97 03/17/21 10:05 CV Function Including HR & BP: Stable Pain Control: Satisfactory Nausea & Vomiting: Negative Mental Status: Baseline Respiratory Status: Airway Patent Hydration Status: Satisfactory Anesthesia Complications: None
== END 2021-03-17 08:09 | disposition home or self-care (01) ==
LOC: SDS 08:08
PROVIDERS: ATTEND Surgery
PROC: 0DBE8ZX Excision of Large Intestine, Via Natural or Artificial Opening Endoscopic, Diagnostic (ICD-10-PCS; 2021-03-17)
PROC: 0DB68ZX Excision of Stomach, Via Natural or Artificial Opening Endoscopic, Diagnostic (ICD-10-PCS; 2021-03-17)
PROC: 0DBH8ZZ Excision of Cecum, Via Natural or Artificial Opening Endoscopic (ICD-10-PCS; principal; 2021-03-17 09:00)
PROC: 0DBP8ZZ Excision of Rectum, Via Natural or Artificial Opening Endoscopic (ICD-10-PCS; 2021-03-17 09:00)
DX: D12.0 Benign neoplasm of cecum (principal); K31.7 Polyp of stomach and duodenum; K62.1 Rectal polyp; K52.9 Noninfective gastroenteritis and colitis, unspecified; K44.9 Diaphragmatic hernia without obstruction or gangrene; K21.9 Gastro-esophageal reflux disease without esophagitis; I10 Essential (primary) hypertension; I48.0 Paroxysmal atrial fibrillation; G35 Multiple sclerosis; M79.7 Fibromyalgia; F41.8 Other specified anxiety disorders; B00.9 Herpesviral infection, unspecified; R32 Unspecified urinary incontinence; R53.83 Other fatigue; F17.210 Nicotine dependence, cigarettes, uncomplicated; Z79.899 Other long term (current) drug therapy
CPT/HCPCS: 43239; 45380; J7120

== ENCOUNTER 2023-10-04 12:02 | Outpatient (CLI) | payer MEDICARE ==
--- NOTE | 2023-10-04 14:08 | XRAY Report ---
PROCEDURE: Shoulder 2+V RT INDICATIONS: RT SHOULDER PAIN TECHNIQUE: 4 views of the shoulder were acquired. COMPARISON: None. FINDINGS: Bones: No fractures or dislocations. No suspicious bony lesions. Visualized ribs appear intact. Soft tissues: No suspicious soft tissue calcifications. The visualized lungs are within normal limi ts. IMPRESSION: No acute bony abnormality. If pain persists with conservative management, consider repeat x-ray in 10 -14 days or cross-sectional imaging. Reviewed by: Corona Maroin MD on 10/04/2023 2:06 PM PDT Approved by: Corona Marion MD on 10/04/2023 2:06 PM PDT Station ID: [id number]
== END 2023-10-04 12:03 | disposition home or self-care (01) ==
LOC: DI.S 12:02
PROVIDERS: ATTEND Orthopaedic Surgery
DX: M25.511 Pain in right shoulder (principal)